=== PATIENT | female | born 1955 | race Caucasian/White ===

== ENCOUNTER 2023-08-25 22:41 | Inpatient (IN) | payer MEDICARE, OTHER, SELFPAY ==
[2023-08-25 19:07] VITALS: BP 168/107
--- NOTE | 2023-08-25 19:37 | ED.GENMED ---
History of Present Illness
General
Chief Complaint: Flank Pain
Source: patient
Time Seen by Provider: 08/25/23 19:21
Travel History
Have you had any contact with someone who has COVID-19?: No
Do you have any symptoms of coronavirus? Fever > 100 degrees, chills, cough, shortness of breath, sore throat, loss of taste or smell, muscle aches, or headache?: No
History of Present Illness
History of Present Illness:
68-year-old female presenting the emergency department for evaluation of left flank pain that started a couple of days ago has mild left lower back pain but today states the pain got significantly worse and radiating towards the left lower abdomen.
This was accompanied with nausea and later in the afternoon started with some mild hematuria. Due to the continued nature of symptoms patient decided to come to the ER today. Denies any fevers, chills, rigors. No history of kidney stones or
urinary tract infections in the past. Patient does have a history of Crohn's disease and gets Remicade infusion but this is different than this type of pain/flareup. No other symptoms and did not take anything for her symptoms prior to arrival.
Past History
Past History
ED Past Medical History: Hypothyroidism, Psychiatric and Other (Crohn's disease)
ED Past Surgical History: Orthopedic and Other
Social History
Tobacco: Non-smoker
Alcohol: None
Drug: None
Personal:
Living: with family
Review of Systems
Review of Systems
All Other Systems: ROS reviewed and negative except as documented in HPI and ROS
Phy Exam
Physical Exam
Physical Exam:
GENERAL: Alert , appears uncomfortable
EYE: clear conjunctiva b/l
HEAD: NCAT
ENT: o/p clr, mmm.
CARDIAC: Regular rate and rhythm .
LUNGS: Clear breath sounds bilaterally, no acute respiratory distress, no wheezes/rales/rhonchi
ABDOMEN: Soft, without focal tenderness, no r/g, moderate left flank ttp
NEUROLOGICAL: Alert and oriented
SKIN: Warm and dry, skin intact.
MUSCULOSKELETAL: No edema, well perfused.
PSYCH: Normal and appropriate interaction.
Scores
Heart Failure Risk
Heart Failure Risk Score: Not Applicable
Heart Score for Chest Pain Patients
STEMI patient?: Not applicable
Withdrawal Assessment of Alcohol
Withdrawal Assessment Completed?: Not applicable
Course
Orders/Labs/Results
Orders:
Orders
08/25/23 19:22
Complete Blood Count/With Diff Urgent
Comprehensive Metabolic Panel Urgent
Urinalysis Reflex To Culture Urgent
Date Specimen was Collected: 08/25/23
Time Specimen was Collected: 19:12
Urine Microscopic Reflex Cult Urgent
Urine Culture Urgent
TAMMY Source: U
Specimen Description:
Date Specimen was Collected: 08/25/23
Time Specimen was Collected: 19:12
08/25/23 19:28
0.9% Sodium Chloride 1000 ml [Nss] 1,000 ml IV BOLUS
Ketorolac [Toradol] 30 mg IV NOW STA
Ondansetron Injectable [Zofran] 4 mg IV NOW STA
08/25/23 19:29
CT Abd/pel Without Iv Or Oral Urgent
Comment:
Reason For Exam: left flank pain, hematuria
08/25/23 19:54
CefTRIAXone [Rocephin] 1,000 mg IV NOW STA
08/25/23 20:12
Ondansetron Injectable [Zofran] 4 mg IV NOW STA
08/25/23 20:13
Sterile Water [Sterile Water For Injection] 10 ml .ROUTE .[facility]
Abnormal Lab Results
08/25/23
19:22
WBC 12.5 H 10^3/uL
(4.8-10.8)
Absolute Neuts (auto) 10.3 H 10^3/uL
(1.4-6.5)
Neutrophils % 82.3 H %
(42.2-75.2)
Lymphocytes % 13.6 L %
(20.5-51.1)
Glucose 146 H mg/dl
(70-99)
Urine Ketones 2+ A
(Negative)
Ur Occult Blood Reflex 4+ A
(Negative)
Urine Nitrite (Reflex) Positive A
(Negative)
Urine Bilirubin 1+ A
(Negative)
Leukocyte Esterase Rfl Trace A
(Negative)
Urine RBC >100 A /HPF
(0-2)
Urine Albumin (Reflex) 1+ A
(Neg - Trace)
08/25/23 19:22
08/25/23 19:22
Vital Signs
Initial and Last Documented VS:
Initial Vital Signs
Temp Pulse Resp BP Pulse Ox
98.3 F 84 18 168/107 95
08/25/23 19:07 08/25/23 19:07 08/25/23 19:07 08/25/23 19:07 08/25/23 19:07
Last Documented Vital Signs
Temp Pulse Resp BP Pulse Ox
98.3 F 72 18 130/68 93
08/25/23 19:07 08/25/23 22:03 08/25/23 22:03 08/25/23 22:03 08/25/23 22:03
MDM/Problems Addressed
Differential Diagnosis Includes:
Renal/ureteral colic, cystitis, pyelonephritis
MDM/Problems Addressed:
68-year-old female presenting emergency department for evaluation of some mild left lower back pain a couple of days ago but today started with more severe pain radiating to the left lower abdomen and today companied with hematuria. Patient does
appear pretty uncomfortable on exam. Labs and urine were initiated in triage. I suspect renal/ureteral to be the most likely diagnosis. Toradol, Zofran and fluids ordered. CT of the abdomen pelvis ordered. Reassessment following.
*Radiology
Radiology exam reviewed: radiology read reviewed
*Pulse Oximetry
Patient hypoxic: no
*Critical Care Note
Total Time (30-74mins, 75-104mins- exclusive of procedures): Not Applicable
Data Reviewed
Review of Other/Old Records Reveals: Radiology Studies
Patient Management
Discussion with other providers: Hospitalist and [employer]
Escalation/DeEscalation of care consider admission/obs:
Patients CT shows the following:
IMPRESSION:
3 mm obstructing calculus in the proximal to mid left ureter, associated with mild left hydronephrosis. Correlation with UA to assess for superimposed infection is recommended.
Bilateral renal calculi also seen.
Additional findings: Left sided focal renal cortical scarring. Moderate hiatal hernia. Vascular calcifications including coronary artery calcifications. Aortic annular mitral annular calcifications. DJD. Right hip arthroplasty. Colonic
diverticulosis.
Patient pain is improved although still with mild nausea. WBC 12.5 with leftward shift. Due to infected urine with kidney stone will admit for IV abx. Urology instrument person notified. Hospitalist accepts for continued evaluation and treatment
ED Attending Note
-
Portions of this chart may have been created with voice recognition software.� Occasional wrong word or��sound alike� substitutions may have occurred due to the inherent limitations of voice recognition software.
Discharge Plan
Departure
Patient Disposition: Admit
Date of Disposition: 08/25/23
Time of Disposition: 22:09
Presentation/result/management discussed w/ accepting MD/DO: Hospitalist
Discharge Problem:
Acute UTI, Ureterolithiasis
Prescriptions:
No Action
metformin 500 mg Tablet
500 mg PO DAILY
levothyroxine 88 mcg Tablet
88 mcg PO DAILY
vitamin B complex Capsule
1 cap PO DAILY
escitalopram oxalate [Lexapro] 10 mg Tablet
10 mg PO HS
rosuvastatin 5 mg Tablet
2.5 mg PO DAILY
Remicade
1 dose IV .Q7 WEEKS
Vitamin D3
1 tab PO DAILY
biotin
1 tab PO DAILY
vitamin A
1 tab PO DAILY
cetirizine [Zyrtec] 10 mg Tablet
10 mg PO DAILY PRN (Reason: allergies)
Referrals:
Nisha Baker MD [Family Provider] -
Interventions
Interventions:
*Risk Screen - Suicide Last Done: 08/25/23 19:09
*General Assessment Last Done: 08/25/23 19:09
*Neglect/Abuse Screening Last Done: 08/25/23 19:09
JU-Fyutlf-Atlptimfrq Assessment Last Done: 08/25/23 20:35
ED-Female Genitourinary Assessment Last Done: 08/25/23 20:35
Discharge Date and Time
Print Language: GERMAN
[2023-08-25 19:41] LABS: % Basophils 0.2 % (0-2); % Eosinophils 0.2 % (0-6); % Immature Granulocytes 0.2 % (0-0.5); % Lymphocytes 13.6 % (20.5-51.1); % Monocytes 3.5 % (1.7-9.3); % Neutrophils 82.3 % (42.2-75.2); Absolute Lymphocytes 1.7 10^3/uL (1.2-3.4); Absolute Monocytes 0.4 10^3/uL (0.1-0.6); Absolute Neutrophils 10.3 10^3/uL (1.4-6.5); Hematocrit 44.6 % (37.0-47.0); Hemoglobin 14.9 g/dL (12.0-16.0); Mean Corp Hgb Conc. 33.4 g/dL (33.0-37.0); Mean Corpuscular Hgb 30.4 pg (27.0-31.0); Mean Platelet Volume 10.1 fL (7.4-10.4); Nucleated Red Blood Cells % 0 %; Platelet Count 201 10^3/uL (130-400); Red Cell Dist. Width 13.2 % (11.5-14.5); White Blood Cell Count 12.5 10^3/uL (4.8-10.8)
[2023-08-25] MEDS: NSS 1000 IV (19:41)
[2023-08-25] MEDS: ZOFRAN 4 MG IV ×2 (19:42→20:14)
[2023-08-25] MEDS: TORADOL 30 MG IV (19:42)
[2023-08-25 19:44] LABS: Urine Albumin 1+ (Neg - Trace); Urine Bilirubin 1+ (Negative); Urine Character Very Cloudy (Clear); Urine Color Amber; Urine Glucose Negative (Negative); Urine Ketone 2+ (Negative); Urine Leukocyte Trace (Negative); Urine Nitrite Positive (Negative); Urine Occult Blood 4+ (Negative); Urine Urobilinogen 1+ (Neg - 1+)
[2023-08-25 19:53] LABS: Urine Amorphous Seen; Urine Red Blood Cell >100 /HPF (0-2); Urine Squamous Cell 16-20 /LPF (Few)
[2023-08-25 19:55] LABS: ALT (SGPT) 17 U/L (0-35); AST (SGOT) 28 U/L (14-36); Albumin 4.9 g/dl (3.5-5.0); Alkaline Phosphatase 74 U/L (38-126); Blood Urea Nitrogen 15 mg/dl (7-17); Calcium 10.1 mg/dl (8.4-10.2); Carbon Dioxide 25 mmol/L (22-30); Chloride 101 mmol/L (98-107); Glucose 146 mg/dl (70-99); Potassium 4.2 mmol/L (3.5-5.1); Sodium 139 mmol/L (135-145); Total Bilirubin 0.5 mg/dl (0.2-1.3); Total Protein 8.2 g/dl (6.3-8.2); eGFR > 60.00
[2023-08-25] MEDS: ROCEPHIN 1000 MG IV (20:14)
[2023-08-25 20:33] VITALS: BP 159/77
[2023-08-25 22:03] VITALS: BP 130/68
--- NOTE | 2023-08-25 22:24 | HPS.HSE ---
Family Physician
-
Family Physician: Nisha Baker
Chief Complaint
-
Lt flank pain
History of Present Illness
68F HX Crohn dz, Hypothyroid seen at ER for evaluation of left flank pain
Current Lt flank pain
- acute onset a couple of days ago which progressive worse
- mild left lower back pain which radiating towards the left lower abdomen
- associated with retching, nausea and hematuria
- Denies fevers, chills, rigors
- No history of kidney stones or UTI
Medical History
Past Medical History
Past Medical History: Reports Hypercholesterolemia and Other
Additional Past Medical History:
Hypothyroidism, Depression and Other (Crohn's disease)
Past Surgical History: Reports Orthopedic
Social History
Tobacco: Non-smoker
Alcohol: None
Drug: None
Personal:
Family History
Family History: Not pertinent
Allergies / Home Medications
Allergies reflects when Allergies were last updated in [facility].
Home Medications with original date entered in [facility]
Allergy/Medication List:
Allergies
Allergy/AdvReac Type Severity Reaction Status Date / Time
No Known Allergies Allergy Verified 11/09/21 12:20
Home Medications
Remicade 1 dose IV .Q7 WEEKS 11/08/21
Vitamin D3 1 tab PO DAILY 11/08/21
biotin 1 tab PO DAILY 11/08/21
escitalopram oxalate 10 mg tablet (Lexapro) 10 mg PO HS 11/08/21
levothyroxine 88 mcg tablet 88 mcg PO DAILY 11/08/21
metformin 500 mg tablet 500 mg PO DAILY 11/08/21
rosuvastatin 5 mg tablet 2.5 mg PO DAILY 11/08/21
vitamin A 1 tab PO DAILY 11/08/21
vitamin B complex 1 cap PO DAILY 11/08/21
cetirizine 10 mg tablet (Zyrtec) 10 mg PO DAILY PRN allergies 11/09/21
Review of Systems
-
Constitutional: Reports No Symptoms
EENT: Reports No Symptoms
Respiratory: Reports No Symptoms
Cardiac: Reports No Symptoms
Abdomen/GI: Reports Nausea
: Reports See HPI and Flank Pain (Lt )
Musculoskeletal: Reports No Symptoms
Skin: Reports No Symptoms
Neurological: Reports No Symptoms
Endocrine: Reports No Symptoms
Hematologic/Lymphatic: Reports No Symptoms
Psych: Reports No Symptoms
Physical Exam
Vital Signs
Vital Signs
Temp Pulse Resp BP Pulse Ox
98.3 F 72 18 130/68 93
08/25/23 19:07 08/25/23 22:03 08/25/23 22:03 08/25/23 22:03 08/25/23 22:03
Physical Exam
General: Other (unconfortable looking , Not toxic ); No Appears Chronically Ill
HEENT: NormoCephalic, Anicteric and Moist mucous membranes
Respiratory: Clear; No Wheezes, Rales or Rhonchi
Cardiac: S1/S2 and Regular Rhythm
Breast: Deferred by me
GI: Soft, Non Tender and Non Distended
Rectal: Deferred by Provider
Genito-urinary: Other (moderate left flank tenderness )
Musculoskeletal: No Edema
Skin: Warm
Neuro: AO x 3
Psych: Calm
Laboratory Results
-
08/25/23 19:22
08/25/23 19:22
Laboratory Results
Total Bilirubin 0.5 mg/dl (0.2-1.3) 08/25/23 19:22
AST 28 U/L (14-36) 08/25/23 19:22
ALT 17 U/L (0-35) 08/25/23 19:22
Alkaline Phosphatase 74 U/L (38-126) 08/25/23 19:22
Data Reviewed
-
CT Scan: Report Reviewed by me
Lab Data: Labs Reviewed by me
Impression/Plan
-
Reviewed VS: Afebrile BP 168/107 ---> 130/68 HR 72 RR18 POx 93 - 97
Data
WCC 12.5
Unremarkable CMP
BG 146
UA: POS Nitrites. RBC >100 WCC unable to count due to obscured by RBCx
CT AP: 3mm obstructing calculus in the prox to mid Lt ureter, mild Lt HN . B/l renal calculi
NO PRIOR hospitalist admission:
ASSESSMENT & PLAN
Pending Rx reconciliation
Acute Lt uretero colic pain : intermittent , waxing and waning
POX 3mm obstructing calculus in the prox to mid Lt ureter, mild Lt HN
Noted B/l renal calculi
Associated hematuria with POS Nitrite
Afebrile . WBC 12.5
No prior HX renal calculi
- at risk for infected stone
- cont empiric IV CFTZ
- IV NS
- Narcotic analgesia PRN
- clear diet
- Uro consulted
DMT2
- held Metformin
- add ISS low
HLD
- on Rosuvastatin
Hypothyroidism on LT4
Remote HX Thyroid CA s/p total thyroidectomy
Crohn's disease on Remicade [id number]
Depression and Anxiety on Escitalopram
DVT Px: SCD
Code: Full
IP MS
[2023-08-25 23:22] VITALS: BP 137/79; BMI 32.5
--- NOTE | 2023-08-26 00:11 | PTCARENOTE ---
Pt. admitted through E.D., AAO x 3, vs stable, call cuello within reach.
[2023-08-26] MEDS: NSS 1000 IV ×3 (00:14→21:13)
[2023-08-26] MEDS: FLUSH (NSS) 1 FLUSH IV (00:16)
[2023-08-26] MEDS: DILAUDID 0.5 MG IV ×2 (00:21→22:57)
[2023-08-26] MEDS: SYNTHROID 88 MCG PO (06:06)
[2023-08-26 07:13] VITALS: BP 131/66
[2023-08-26 07:51] LABS: Glucose - Point of Care 95 mg/dl (70-99)
[2023-08-26 09:12] LABS: % Basophils 0.3 % (0-2); % Eosinophils 0.7 % (0-6); % Immature Granulocytes 0.3 % (0-0.5); % Lymphocytes 38.2 % (20.5-51.1); % Monocytes 9.1 % (1.7-9.3); % Neutrophils 51.4 % (42.2-75.2); Absolute Eosinophils 0.1 10^3/uL (0-0.7); Absolute Lymphocytes 2.7 10^3/uL (1.2-3.4); Absolute Monocytes 0.7 10^3/uL (0.1-0.6); Absolute Neutrophils 3.7 10^3/uL (1.4-6.5); Hemoglobin 12.2 g/dL (12.0-16.0); Mean Corpuscular Volume 91.1 fL (81.0-99.0); Nucleated Red Blood Cells % 0 %; Platelet Count 171 10^3/uL (130-400); Red Blood Cell Count 4.06 10^6/uL (4.20-5.40); Red Cell Dist. Width 13.4 % (11.5-14.5); White Blood Cell Count 7.1 10^3/uL (4.8-10.8)
[2023-08-26] MEDS: CRESTOR 2.5 MG PO (09:12)
[2023-08-26 09:29] LABS: Calcium 8.8 mg/dl (8.4-10.2); Carbon Dioxide 22 mmol/L (22-30); Estimated Creatinine Clearance 90 ml/min; eGFR > 60.00
[2023-08-26 09:30] LABS: Blood Urea Nitrogen 16 mg/dl (7-17); Chloride 106 mmol/L (98-107); Glucose 94 mg/dl (70-99); Sodium 137 mmol/L (135-145)
[2023-08-26 09:54] LABS: Glycohemoglobin (HgbA1c) 6.4 % (4.0-5.6)
--- NOTE | 2023-08-26 09:58 | W.PN.URO.CBU ---
Today's Communication / Plan
-
Cleared for discharge home for outpatient trial of stone passage
Would advise 5 days coverage with cefdinir given history of DM and use of Remicade
Assessment / Plan
-
Partially obstructing 2 mm left proximal ureteral stone
Left renal colic and leukocytosis resolved
No fever/chills
Diagnosis
-
Date of Service: August 26, 2023
-
Patient Diagnosis:
Left renal colic
Nausea/vomiting
Leukocytosis
Partially obstructing 2mm left proximal ureteral calculus
Subjective
-
Much improved
Little to no left CVAT
No nausea
No dysuria
Objective
-
Vital Signs
Temp Pulse Resp BP Pulse Ox
98.0 F 68 16 131/66 98
08/26/23 07:13 08/26/23 07:13 08/26/23 07:13 08/26/23 07:13 08/26/23 07:13
Intake and Output
08/25/23 08/26/23 08/27/23
06:59 06:59 06:59
Intake Total 840 / 840
Balance 840 / 840
Intake:
Oral fluids 240 / 240
IV fluids (Total) 600 / 600
Other:
Number of approximated MODERATE 2
amounts of urine
Laboratory Results
08/26/23 08:14
08/26/23 08:14
Review of Systems
-
Constitutional: No Symptoms
Respiratory: No Symptoms
Cardiac: No Symptoms
Abdomen/GI: No Symptoms
: No Symptoms
Neurological: No Symptoms
Physical Exam
-
General - well nourished, no acute distress
Abdomen - soft, non-tender, no CVAT
Counseling
-
Discussed with Hospitalist
--- NOTE | 2023-08-26 10:12 | W.PN.URO.CBU ---
Today's Communication / Plan
-
Discussed with Hospitalist
Assessment / Plan
-
Partially obstructing 2 mm left proximal ureteral stone
Left renal colic and leukocytosis resolved
No fever/chills
Diagnosis
-
Date of Service: August 26, 2023
-
Patient Diagnosis:
Post Op Day:
Patient Diagnosis:
Left renal colic
Nausea/vomiting
Leukocytosis
Partially obstructing 2mm left proximal ureteral calculus
Objective
-
Vital Signs
Temp Pulse Resp BP Pulse Ox
98.0 F 68 16 131/66 98
08/26/23 07:13 08/26/23 07:13 08/26/23 07:13 08/26/23 07:13 08/26/23 07:13
Intake and Output
08/25/23 08/26/23 08/27/23
06:59 06:59 06:59
Intake Total 840 / 840
Balance 840 / 840
Intake:
Oral fluids 240 / 240
IV fluids (Total) 600 / 600
Other:
Number of approximated MODERATE 2
amounts of urine
Laboratory Results
08/26/23 08:14
08/26/23 08:14
Physical Exam
-
General - well developed, well nourished, no acute distress
Chest - clear bilaterally
Abdomen - soft, non-tender, positive bowel sounds, no CVAT, no incisional pain or distention
Genitalia - normal
Rectal - normal
Skin - warm & dry with no rash
Neuro - AOx3, no motor deficits
Extremities - no clubbing, no cyanosis, no edema
Incision - clean, dry
Dressing - clean, dry, intact
--- NOTE | 2023-08-26 10:37 | W.PN.HOSP.TC ---
Today's Communication/Plan
-
see bold
Assessment / Plan
Assessment / Plan
Gen: NAD, AAOx3.
Eyes: EOMI, PERRLA, no scleral icterus.
Neck: supple.
CV: RRR, +S1/S2, no m/r/g.
Resp: CTAB, no rales, wheezes, or rhonchi.
Abd: +BS, soft, NT, ND
Skin: No rashes.
Neuro: CN 2-12 intact, non-focal.
Psych: Normal mood and affect.
3mm obstructing left ureterolithiasis:
-Official read of CT scan of the abdomen pelvis is pending
-Case discussed with Dr. Oliveira. No surgical intervention indicated at this time. Stone will likely pass on it's own.
-possible UTI due to 3mm obstructing left ureterolithiasis, cont Rocephin, follow UCx
-leukocytosis now resolved
-cont IVFs
Other problems:
DM2: Restart Metformin. SSI/accuchecks
Obesity due to excess calories
HLD: cont statin
Hypothyroidism: cont Levoxyl (h/o Thyroid CA s/p total thyroidectomy)
Crohn's disease on Remicade [id number]
Depression/Anxiety: cont Escitalopram
FULL/Lovenox
Anticipated Discharge: Within 24 hours
Subjective/Interval History
-
Date of Service: August 26, 2023
Objective Data
-
Labs:
Laboratory Results
08/26/23
08:14
WBC 7.1
Hgb 12.2
Hct 37.0
Plt Count 171
Sodium 137
Potassium 4.0
Chloride 106
Carbon Dioxide 22
BUN 16
Creatinine 0.6
Glucose 94
Calcium 8.8
Vital Signs:
Vital Signs
Temp Pulse Resp BP Pulse Ox
98.0 F 68 16 131/66 98
08/26/23 07:13 08/26/23 07:13 08/26/23 07:13 08/26/23 07:13 08/26/23 07:13
I&O
08/25/23 08/26/23 08/27/23
06:59 06:59 06:59
Intake Total 840 / 840
Balance 840 / 840
--- NOTE | 2023-08-26 11:40 | CM ---
Patient seen bedside.
IA completed.
Patient lives with daughter in [place] style home.
Patient independent prior to admission without assistive devices.
patient drives.
Patient is retired.
No VN.
PCP: Dr Baker
Pharmacy: [facility]
Plan: home no needs.
[2023-08-26 11:43] LABS: Glucose - Point of Care 115 mg/dl (70-99)
[2023-08-26] MEDS: GLUCOPHAGE 500 MG PO (12:03)
[2023-08-26 15:06] VITALS: BP 109/57
[2023-08-26 16:51] LABS: Glucose - Point of Care 113 mg/dl (70-99)
[2023-08-26] MEDS: TORADOL 10 MG IV (21:13)
[2023-08-26] MEDS: ROCEPHIN 1000 MG IV (21:13)
[2023-08-26 21:49] LABS: Glucose - Point of Care 114 mg/dl (70-99)
[2023-08-26 23:58] VITALS: BP 139/75
[2023-08-27] MEDS: SYNTHROID 88 MCG PO (05:51)
[2023-08-27] MEDS: NSS 1000 IV (05:51)
[2023-08-27 07:00] VITALS: BP 144/75
[2023-08-27] MEDS: TORADOL 10 MG IV (07:40)
[2023-08-27 07:41] LABS: Glucose - Point of Care 118 mg/dl (70-99)
[2023-08-27] MEDS: CRESTOR 2.5 MG PO (07:42)
[2023-08-27] MEDS: MIRALAX 17 GRAMS PO (07:42)
[2023-08-27] MEDS: GLUCOPHAGE 500 MG PO (07:43)
--- NOTE | 2023-08-27 09:11 | W.PN.URO.CBU ---
Today's Communication / Plan
-
Cleared for discharge home from [facility]
Will follow up as outpatient to confirm stone passage
Assessment / Plan
-
Partially obstructing 2 mm left proximal ureteral stone
Left renal colic and leukocytosis resolved
No fever/chills
Diagnosis
-
Date of Service: August 27, 2023
-
Patient Diagnosis:
Left renal colic: resolved
Nausea/vomiting: resolved
Leukocytosis: resolved
Partially obstructing 2mm left proximal ureteral calculus
Subjective
-
c/o low back pain
No left renal colic
No dysuria or gross hematuria
Objective
-
Vital Signs
Temp Pulse Resp BP Pulse Ox
98.1 F 69 14 144/75 95
08/27/23 07:00 08/27/23 07:00 08/27/23 07:00 08/27/23 07:00 08/27/23 07:00
Intake and Output
08/26/23 08/27/23 08/28/23
06:59 06:59 06:59
Intake Total 840 / 840 3020 / 3020
Balance 840 / 840 3020 / 3020
Intake:
Oral fluids 240 / 240 720 / 720
IV fluids (Total) 600 / 600 2300 / 2300
Other:
Number of approximated MODERATE 2 3
amounts of urine
Laboratory Results
08/26/23 08:14
08/26/23 08:14
Review of Systems
-
Constitutional: No Symptoms
Respiratory: No Symptoms
: No Symptoms
Neurological: No Symptoms
Physical Exam
-
General - well developed, well nourished, no acute distress
Abdomen - soft, non-tender, no CVAT
Skin - warm & dry with no rash
--- NOTE | 2023-08-27 10:32 | W.PN.HOSP.TC ---
Today's Communication/Plan
-
d/c
Assessment / Plan
Assessment / Plan
Gen: NAD, AAOx3.
Eyes: EOMI, PERRLA, no scleral icterus.
Neck: supple.
CV: Remains RRR, +S1/S2, no m/r/g.
Resp: Remains CTAB, no rales, wheezes, or rhonchi.
Abd: Remains +BS, soft, NT, ND
Skin: No rashes.
Neuro: CN 2-12 intact, non-focal.
Psych: Normal mood and affect.
3mm obstructing left ureterolithiasis:
-Official read of CT scan of the abdomen pelvis is pending
-Case discussed with Dr. Oliveira. No surgical intervention indicated at this time. Stone will likely pass on it's own.
-Pt was on Rocephin. UCx with no significant growth. Urinary tract infection has been ruled out. Stop Rocephin.
-leukocytosis now resolved
-s/p IVFs
-discussed plan with Dr. Oliveira today
Other problems:
DM2: cont Metformin/SSI/accuchecks
Obesity due to excess calories
HLD: cont statin
Hypothyroidism: cont Levoxyl (h/o Thyroid CA s/p total thyroidectomy)
Crohn's disease on Remicade [id number]
Depression/Anxiety: cont Escitalopram
FULL/Lovenox
Total time spent on d/c = 31 min. This included today's physical exam, progress note, review of laboratory and diagnostic data, preparation of discharge documents and prescriptions, and discussions about the pt's hospital course and discharge plan
with the patient and other director global medical affairs involved in the patient's care.
Anticipated Discharge: Today
Subjective/Interval History
-
Date of Service: August 27, 2023
No new complaints.
Objective Data
-
Vital Signs:
Vital Signs
Temp Pulse Resp BP Pulse Ox
98.1 F 69 14 144/75 95
08/27/23 07:00 08/27/23 07:00 08/27/23 07:00 08/27/23 07:00 08/27/23 07:00
I&O
08/26/23 08/27/23 08/28/23
06:59 06:59 06:59
Intake Total 840 / 840 3020 / 3020
Balance 840 / 840 3020 / 3020
[2023-08-27 11:29] LABS: Glucose - Point of Care 102 mg/dl (70-99)
[2023-08-27 12:04] VITALS: BP 148/82
--- NOTE | 2023-08-27 14:14 | W.DCSUMMARY ---
Discharge Summary
Discharge Data
Date of Admission: 08/25/23
Date of Discharge: 08/27/23
-
Pending Results: No
Hospital Course
Primary diagnoses:
Mild acute left hydronephrosis secondary to a 2mm obstructing calculus in the left mid ureter
Secondary diagnoses:
Type 2 diabetes mellitus
Obesity due to excess calories
Hyperlipidemia
Hypothyroidism (h/o Thyroid cancer s/p total thyroidectomy)
Crohn's disease
Depression
Anxiety
Consultants:
Urology
Imaging:
CT A/P:
1. MILD ACUTE LEFT HYDRONEPHROSIS secondary to a 2 mm obstructing calculus in the left mid ureter.
2. Bilateral nonobstructing intrarenal calculi.
3. Mild chronic scarring in the upper pole of the left kidney.
4. Small hiatal hernia.
5. Moderate calcific atherosclerotic plaque in the abdominal aorta.
6. Moderate diverticulosis in the descending and sigmoid colon.
7. Severe multilevel discogenic degenerative disease and facet joint arthrosis in the lumbar spine.
Hospital course: 68-year-old female presented with chief complaint of left flank pain as outlined in the H&P done on admission. Imaging above and notable for mild acute left hydronephrosis secondary to a 2 mm obstructing calculus in the left mid
ureter. Patient was treated with IV fluids. Urology saw the patient consultation. No surgical intervention was indicated. Dr. Oliveira indicated that the stone will likely pass on its own. The patient was placed on empiric Rocephin. Her urine
culture was no growth. Urinary tract infection was ruled out and Rocephin was stopped. The patient had a leukocytosis that was likely reactive that resolved. The patient was discharged in medically stable condition.
Discharge Plan
-
Patient Disposition: Home (Routine Discharge)
Discharge Diagnosis/Procedures: 3mm obstructing left ureterolithiasis
Condition: Good
Diet: Diabetic, Carb Controlled
Activity: No restrictions
Driving Restrictions: As prior to admission
Bathing Restrictions: None
Referrals:
Nisha Baker MD [Family Provider] - in less than 1 week
Prescriptions:
Continued
metformin 500 mg Tablet
500 mg PO DAILY
levothyroxine 88 mcg Tablet
88 mcg PO DAILY
escitalopram oxalate [Lexapro] 10 mg Tablet
10 mg PO HS
Patient Comments:
pt. does not take anymore
rosuvastatin 5 mg Tablet
2.5 mg PO DAILY
Remicade
1 dose IV .Q7 WEEKS
cetirizine [Zyrtec] 10 mg Tablet
10 mg PO DAILY PRN (Reason: allergies)
Discharge Orders:
Discharge Patient (As Directed); Ordered 08/27/23
Ordered By: Paresh Martínez
Discharge Date and Time
Discharge Date/Time: 08/27/23 13:54
Print Language: NORWEGIAN
== END 2023-08-27 13:54 | disposition home or self-care (01) | DRG 694 ==
LOC: 4 WEST ACU 22:41
PROVIDERS: ADMITTING PHYSICIAN Internal Medicine; ATTENDING PHYSICIAN Internal Medicine; CONSULT PHYSICIAN Specialist; EMERGENCY PHYSICIAN Emergency Medicine; FAMILY PHYSICIAN Internal Medicine
DX: N13.2 Hydronephrosis with renal and ureteral calculous obstruction (principal); K50.90 Crohn's disease, unspecified, without complications; E11.9 Type 2 diabetes mellitus without complications; E66.09 Other obesity due to excess calories; E78.00 Pure hypercholesterolemia, unspecified; E89.0 Postprocedural hypothyroidism; Z79.620 Long term (current) use of immunosuppressive biologic; F32.A Depression, unspecified; F41.9 Anxiety disorder, unspecified; Z68.32 Body mass index [BMI] 32.0-32.9, adult
CPT/HCPCS: 74176; 80048; 80053; 81003; 81015; 82962; 83036; 85025; 87086; 96361; 96374; 96375; 96376; 99285

== ENCOUNTER 2023-10-08 15:57 | Inpatient (IN) | payer MEDICARE, OTHER, SELFPAY ==
[2023-10-08] VITALS (8 sets, daily range): BP systolic 113–148; BP diastolic 57–94; BMI 34.5
[2023-10-08 12:45] LABS: % Basophils 0.3 % (0-2); % Eosinophils 0.3 % (0-6); % Immature Granulocytes 0.3 % (0-0.5); % Lymphocytes 26.5 % (20.5-51.1); % Monocytes 7.2 % (1.7-9.3); % Neutrophils 65.4 % (42.2-75.2); Absolute Lymphocytes 1.7 10^3/uL (1.2-3.4); Absolute Monocytes 0.5 10^3/uL (0.1-0.6); Absolute Neutrophils 4.3 10^3/uL (1.4-6.5); Hematocrit 39.9 % (37.0-47.0); Hemoglobin 13.7 g/dL (12.0-16.0); Mean Corp Hgb Conc. 34.3 g/dL (33.0-37.0); Mean Corpuscular Hgb 31.3 pg (27.0-31.0); Mean Corpuscular Volume 91.1 fL (81.0-99.0); Mean Platelet Volume 9.8 fL (7.4-10.4); Nucleated Red Blood Cells % 0 %; Platelet Count 177 10^3/uL (130-400); Red Blood Cell Count 4.38 10^6/uL (4.20-5.40); White Blood Cell Count 6.5 10^3/uL (4.8-10.8)
[2023-10-08 12:59] LABS: ALT (SGPT) 15 U/L (0-35); AST (SGOT) 23 U/L (14-36); Albumin 4.2 g/dl (3.5-5.0); Alkaline Phosphatase 64 U/L (38-126); Blood Urea Nitrogen 15 mg/dl (7-17); Calcium 9.5 mg/dl (8.4-10.2); Carbon Dioxide 25 mmol/L (22-30); Chloride 105 mmol/L (98-107); Estimated Creatinine Clearance 96 ml/min; Glucose 120 mg/dl (70-99); Potassium 4.2 mmol/L (3.5-5.1); Sodium 140 mmol/L (135-145); Total Bilirubin 0.4 mg/dl (0.2-1.3); eGFR > 60.00
--- NOTE | 2023-10-08 14:51 | ED.GENMED ---
History of Present Illness
General
Chief Complaint: Weakness
Source: patient and family
Exam Limitations: none
Time Seen by Provider: 10/08/23 11:58
Nursing documentation reviewed up to this point in time: agreed with
History of Present Illness
History of Present Illness:
68-year-old female presenting to the emergency department today with concerns of right arm and right leg weakness over the past 4 days ongoing over the past 4 days. She additionally had an episode of blurred vision that initially started the
symptoms. Denies any specific pain denies any nausea vomiting. Chest pain shortness of breath.
Past History
Past History
ED Past Medical History: Hypothyroidism, Psychiatric and Other (Crohn's disease)
ED Past Surgical History: Orthopedic and Other
Social History
Tobacco: Non-smoker
Alcohol: None
Drug: None
Personal:
Living: with family
Review of Systems
Review of Systems
Allergies reviewed?: Yes
All Other Systems: ROS reviewed and negative except as documented in HPI and ROS
Phy Exam
Physical Exam
Physical Exam:
GENERAL: Alert , in no apparent distress
EYE: pupils equal and reactive
NECK: Supple, no significant adenopathy.
ENT: o/p clr, mmm.
CARDIAC: Regular rate and rhythm .
LUNGS: Clear breath sounds bilaterally, no acute respiratory distress, no wheezes/rales/rhonchi
ABDOMEN: Soft, without focal tenderness, no r/g, no cvat
NEUROLOGICAL: Alert and oriented, patient has vague slight weakness diffusely to the right lower extremity and right upper extremity pronator drift on the right side compared to the left. Otherwise normal sensation bilaterally normal finger-nose
and [id number]. Normal HEENT examination.
SKIN: Warm and dry, skin intact.
MUSCULOSKELETAL: No edema, well perfused.
PSYCH: Normal and appropriate interaction.
Course
Orders/Labs/Results
Orders:
Orders
10/08/23 12:23
Electrocardiogram (*1) Stat
Reason for Study: Other
Other Reason for Exam: neuro symptoms
CT Head & Neck Angio W/wo IV Urgent
Comment:
Reason For Exam: nck pain right sided def, neckmanipulation
Cardiac Monitoring- Treatment ONCE
EKG- Treatment ONCE
10/08/23 12:33
Complete Blood Count/With Diff Urgent
Comprehensive Metabolic Panel Urgent
10/08/23 14:58
Aspirin 325 mg PO NOW STA
10/08/23 14:59
Clopidogrel Bisulfate [Plavix] 75 mg PO NOW STA
Abnormal Lab Results
10/08/23
12:33
MCH 31.3 H pg
(27.0-31.0)
Glucose 120 H mg/dl
(70-99)
10/08/23 12:33
10/08/23 12:33
Vital Signs
Initial and Last Documented VS:
Initial Vital Signs
Temp Pulse Resp BP Pulse Ox
98.2 F 76 18 147/94 95
10/08/23 11:19 10/08/23 11:19 10/08/23 11:19 10/08/23 11:19 10/08/23 11:19
Last Documented Vital Signs
Temp Pulse Resp BP Pulse Ox
98.2 F 60 18 136/74 95
10/08/23 11:19 10/08/23 15:15 10/08/23 15:15 10/08/23 15:00 10/08/23 15:15
MDM/Problems Addressed
MDM/Problems Addressed:
68-year-old female presented to the emergency department today with concerns of right-sided weakness difficulty with ambulation due to the weakness veering to the right side when walking. Ongoing for 4 days started with some blurred vision. Has
had some intermittent neck pain has been seeing a chiropractor as well. Concerning the CT angiogram was performed no emergent findings seen on CT. No signs of bleeding. Patient was given aspirin and Plavix Case was discussed with neurology who
would like to get an MRI and admit the patient. Stable throughout ER stay.
*Critical Care Note
Total Time (30-74mins, 75-104mins- exclusive of procedures): Not Applicable
ED Attending Note
-
Portions of this chart may have been created with voice recognition software.� Occasional wrong word or��sound alike� substitutions may have occurred due to the inherent limitations of voice recognition software.
Discharge Plan
Departure
Patient Disposition: Admit
Date of Disposition: 10/08/23
Time of Disposition: 15:20
Admit to: Telemetry
Admit to doctor: Sherman
Presentation/result/management discussed w/ accepting MD/DO: Hospitalist
Patient with high blood pressure during this ER visit?: No
Condition: Good
Covid-19: Not Applicable
Discharge Problem:
Right sided weakness
Prescriptions:
No Action
metformin 500 mg Tablet
500 mg PO DAILY
levothyroxine 88 mcg Tablet
88 mcg PO DAILY
escitalopram oxalate [Lexapro] 10 mg Tablet
10 mg PO HS
Patient Comments:
pt. does not take anymore
rosuvastatin 5 mg Tablet
2.5 mg PO DAILY
Remicade
1 dose IV .Q7 WEEKS
cetirizine [Zyrtec] 10 mg Tablet
10 mg PO DAILY PRN (Reason: allergies)
Referrals:
Nisha Baker MD [Family Provider] -
Interventions
Interventions:
*Risk Screen - Suicide Last Done: 10/08/23 11:19
*General Assessment Last Done: 10/08/23 11:19
*Neglect/Abuse Screening Last Done: 10/08/23 11:19
ED- Fall Risk Assessment Last Done: 10/08/23 11:37
*ED COVID-19 Vaccine History Last Done: 10/08/23 11:19
ED- Cardiac Assessment Last Done: 10/08/23 11:35
ED- Neurological Assessment Last Done: 10/08/23 14:26
ED- Pulmonary Assessment Last Done: 10/08/23 11:35
Discharge Date and Time
Print Language: DOMINICAN
[2023-10-08] MEDS: PLAVIX 75 MG PO (15:09)
[2023-10-08] MEDS: ASPIRIN 325 MG PO (15:09)
--- NOTE | 2023-10-08 15:23 | HPS.HSE ---
Family Physician
-
Family Physician: Nisha Baker
Chief Complaint
-
R arm and leg weakness
History of Present Illness
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 She also had blurred vision 4 days ago which has resolved.
Patient also complained of mild shortness of breath with exertion.
She denies to other symptoms such as fever/chills etc.
Medical History
Past Medical History
Past Medical History: Reports Hypercholesterolemia and Other
Additional Past Medical History:
Hypothyroidism, Depression, Crohn's disease
Past Surgical History: Reports Orthopedic and Other
Additional Past Surgical History:
Thyroid cancer s/p total thyroidectomy
Social History
Tobacco: Non-smoker
Alcohol: Occasional
Drug: None
Personal:
Family History
Family History: Not pertinent
Allergies / Home Medications
Allergies reflects when Allergies were last updated in [facility] [employer].
Home Medications with original date entered in [employer] [facility]
Allergy/Medication List:
Allergies
Allergy/AdvReac Type Severity Reaction Status Date / Time
No Known Allergies Allergy Verified 10/08/23 11:19
Home Medications
levothyroxine 88 mcg tablet 88 mcg PO DAILY Thyroid 11/08/21
metformin 500 mg tablet 500 mg PO DAILY Diabetes 11/08/21
cetirizine 10 mg tablet (Zyrtec) 10 mg PO DAILYPRN PRN allergies 11/09/21
bismuth subsalicylate 262 mg tablet (Pepto-Bismol) 524 mg PO DAILYPRN PRN stomach issues 10/08/23
ibuprofen 400 mg tablet 800 mg PO Q8HPRN PRN mild pain 10/08/23
infliximab 100 mg intravenous solution (Remicade) 100 mg IV Q7W 10/08/23
risedronate 150 mg tablet 150 mg PO QMONTH 10/08/23
rosuvastatin 10 mg tablet 5 mg PO DAILY 10/08/23
Review of Systems
-
Neurological: Reports See HPI and Weakness (R leg > R arm)
Physical Exam
Vital Signs
Vital Signs
Temp Pulse Resp BP Pulse Ox
36.8 C 60 18 136/74 95
10/08/23 11:19 10/08/23 15:15 10/08/23 15:15 10/08/23 15:00 10/08/23 15:15
Physical Exam
General: Well Developed, Well Nourished, No Apparent Distress, Comfortable and Conversant
HEENT: NormoCephalic, Moist mucous membranes and Atraumatic
Respiratory: Clear and Non Labored Respirations; No Accessory Resp Muscle Use
Cardiac: S1/S2 and Regular Rhythm; No Murmur or Rub
GI: Soft, Non Tender, Non Distended and Normal Bowel Sounds; No Organomegaly
Rectal: Deferred by Provider
Musculoskeletal: No Clubbing, No Cyanosis and No Edema
Skin: No Rash
Neuro: Awake, Alert, Oriented and Other (R leg weakness)
Psych: Calm and Intact Judgment/Insight
Laboratory Results
-
10/08/23 12:33
10/08/23 12:33
Laboratory Results
Total Bilirubin 0.4 mg/dl (0.2-1.3) 10/08/23 12:33
AST 23 U/L (14-36) 10/08/23 12:33
ALT 15 U/L (0-35) 10/08/23 12:33
Alkaline Phosphatase 64 U/L (38-126) 10/08/23 12:33
Data Reviewed
-
CT Scan: Report Reviewed by me
Lab Data: Labs Reviewed by me
Impression/Plan
-
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 She also had blurred vision 4 days ago which has resolved.
Patient also complained of mild shortness of breath with exertion.
She denies to other symptoms such as fever/chills etc.
A/P:
# R arm and leg weakness, possible TIA/stroke
CTH and CTA showed no acute intracranial abnormality.
Check MRI brain
Started ASA/Plavix, cont
Check Lipid and A1C as part of acute stroke work up
cont BURGLARY INVESTIGATOR Crestor
Neuro CS
PT OT eval
# Type 2 diabetes mellitus
Carb control diet
cover with ISS
# Obesity due to excess calories
BMI 34
# Hyperlipidemia
cont BURGLARY INVESTIGATOR Crestor
# Hypothyroidism (h/o Thyroid cancer s/p total thyroidectomy)
Cont BURGLARY INVESTIGATOR Synthroid
# Crohn's disease
# Depression/ Anxiety
mood stable
DVT ppx: lovenox SQ
FC
[2023-10-08 16:18] LABS: HDL Cholesterol 70 mg/dl; LDL Cholesterol, Calculated 47 mg/dl; Total Cholesterol 136 mg/dl (50-199); Triglyceride 99 mg/dl (10-149); Very Low Density Lipoprotein 19 mg/dl (0-30)
[2023-10-08 18:08] LABS: Glucose - Point of Care 91 mg/dl (70-99)
[2023-10-08] MEDS: LOVENOX SC (18:29)
[2023-10-08 21:14] LABS: Glucose - Point of Care 138 mg/dl (70-99)
[2023-10-09] VITALS (8 sets, daily range): BP systolic 129–157; BP diastolic 75–92; PULSE 74–75; O2SAT 96
[2023-10-09] MEDS: TYLENOL 650 MG PO ×2 (01:48→07:49)
[2023-10-09] MEDS: SYNTHROID 88 MCG PO (05:31)
[2023-10-09 07:08] LABS: Glucose - Point of Care 149 mg/dl (70-99)
[2023-10-09] MEDS: PLAVIX 75 MG PO (07:42)
[2023-10-09] MEDS: CRESTOR 5 MG PO (07:42)
[2023-10-09] MEDS: LOW STRENGTH ASPIRIN 81 MG PO (07:42)
[2023-10-09 08:45] LABS: Hematocrit 40.5 % (37.0-47.0); Hemoglobin 14.2 g/dL (12.0-16.0); Mean Corp Hgb Conc. 35.1 g/dL (33.0-37.0); Mean Corpuscular Hgb 30.7 pg (27.0-31.0); Mean Corpuscular Volume 87.5 fL (81.0-99.0); Mean Platelet Volume 10.1 fL (7.4-10.4); Platelet Count 205 10^3/uL (130-400); Red Blood Cell Count 4.63 10^6/uL (4.20-5.40); Red Cell Dist. Width 13.1 % (11.5-14.5); White Blood Cell Count 6.5 10^3/uL (4.8-10.8)
[2023-10-09 08:57] LABS: Glycohemoglobin (HgbA1c) 6.2 % (4.0-5.6)
--- NOTE | 2023-10-09 08:58 | W.PN.HOSP.TC ---
Today's Communication/Plan
-
see A/P
Assessment / Plan
Assessment / Plan
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 She also had blurred vision 4 days ago which has resolved.
Patient also complained of mild shortness of breath with exertion.
She denies to other symptoms such as fever/chills etc.
A/P:
# R arm and leg weakness, possible TIA/stroke
CTH and CTA showed no acute intracranial abnormality.
Check MRI brain
Cont ASA/Plavix
LDL 47 , cont STEAMER BLOCKER Crestor
Follow A1C
Neuro CSed
PT OT eval
# Type 2 diabetes mellitus
Carb control diet
cover with ISS
# Obesity due to excess calories
BMI 34
# Hyperlipidemia
cont STEAMER BLOCKER Crestor
# Hypothyroidism (h/o Thyroid cancer s/p total thyroidectomy)
Cont STEAMER BLOCKER Synthroid
# Crohn's disease
# Depression/ Anxiety
mood stable
DVT ppx: lovenox SQ
FC
Anticipated Discharge: 24 - 48 hours
Subjective/Interval History
-
Date of Service: October 09, 2023
Objective Data
-
Labs:
Laboratory Results
10/09/23
08:10
WBC 6.5
Hgb 14.2
Hct 40.5
Plt Count 205
Sodium Pending
Potassium Pending
Chloride Pending
Carbon Dioxide Pending
BUN Pending
Creatinine Pending
Glucose Pending
Calcium Pending
Vital Signs:
Vital Signs
Temp Pulse Resp BP Pulse Ox
36.7 C 79 18 138/91 94
10/09/23 08:00 10/09/23 08:00 10/09/23 08:00 10/09/23 08:00 10/09/23 08:00
Review of Systems
-
Neuro: Reports Weakness (R arm, R leg )
Physical Exam
-
General: Well Developed, Well Nourished, No Apparent Distress, Comfortable and Conversant; Negative Respiratory Distress
HEENT: Normocephalic, Atraumatic, Nose Appears Normal and Ears Appear Normal; Negative Oxygen
Respiratory: Clear to Auscultation and Non Labored Respirations; Negative Accessory Resp Muscle Use
Cardiac: Regular Rhythm and S1/S2
GI: Soft, Nontender, Nondistended and Normal Bowel Sounds
Skin: Warm and Dry
Neuro: Awake, Alert, Oriented, AO x 3 and Other (R leg weakness)
Psych: Calm and Intact Judgement/Insight
Data Reviewed
-
CT Scan: Report Reviewed by me
Labs: Labs Reviewed by me
[2023-10-09 09:07] LABS: Blood Urea Nitrogen 13 mg/dl (7-17); Calcium 9.8 mg/dl (8.4-10.2); Carbon Dioxide 23 mmol/L (22-30); Chloride 105 mmol/L (98-107); Estimated Creatinine Clearance 96 ml/min; Glucose 135 mg/dl (70-99); HDL Cholesterol 75 mg/dl; LDL Cholesterol, Calculated 47 mg/dl; Magnesium 1.9 mg/dl (1.6-2.3); Potassium 4.1 mmol/L (3.5-5.1); Sodium 138 mmol/L (135-145); Total Cholesterol 145 mg/dl (50-199); Triglyceride 116 mg/dl (10-149); Very Low Density Lipoprotein 23 mg/dl (0-30); eGFR > 60.00
--- NOTE | 2023-10-09 09:19 | PTOTSP ---
ST Acute Care Evaluations
Pt currently presents with oral, pharyngeal, and esophageal parameters that are generally WFL. No overt s/s of penetration or aspiration noted at bedside. Pt also described symptoms of increased reflux with and without PO intake in the past 2 weeks
- these s/s should be worked up as an OP.
Pt also demonstrates a mild neurocognitive impairment 2/2 acute CVA vs aging process. Pt experiences increased difficulty with tasks that target her working memory and short term recall. Pt would benefit from additional OP work-up upon d/c.
Recommendations:
- Continue with regular solids, thin liquids, meds as tolerated.
- General aspiration precautions & reflux precautions.
- Consider OP GI work-up for recent increase in reflux symptoms.
- EXPRESSIVE MUSIC THERAPIST to follow-up to ensure pt continues to safely consume her recommended diet consistencies as well as to target her mild neurocognitive deficits.
- Pt would benefit from a comprehensive speech, language, and cognitive EXPRESSIVE MUSIC THERAPIST evaluation upon d/c at the ambulatory center.
--- NOTE | 2023-10-09 10:56 | CM ---
Patient seen bedside, initial assessment completed. Patient resides with her daughter in a ranch style home, one step to enter. Patient reports she has had multiple foot surgeries and has the following equipment at home: grab bars in shower, cane,
walkers, crutches, knee scooter, commode, shower chairs. Patient reports history of [facility] in past, denies SNF. Patient confirms PCP Dr. Baker, pharmacy [facility] in [place], confirms prescription coverage. Patient denies food,
housing/utility, and transportation insecurities at home. Patient declines VN needs at this time. CM will watch for PT/OT evals for recommendations.
Plan; home no needs likely.
[2023-10-09 11:51] LABS: Glucose - Point of Care 147 mg/dl (70-99)
[2023-10-09 16:22] LABS: Glucose - Point of Care 89 mg/dl (70-99)
[2023-10-09] MEDS: LOVENOX 40 MG SC (16:58)
[2023-10-09 21:30] LABS: Glucose - Point of Care 104 mg/dl (70-99)
[2023-10-10] VITALS (7 sets, daily range): BP systolic 131–158; BP diastolic 75–90; PULSE 75; O2SAT 96
[2023-10-10] MEDS: TYLENOL 650 MG PO (00:07)
[2023-10-10] MEDS: MOTRIN 800 MG PO ×2 (01:59→22:26)
[2023-10-10] MEDS: SYNTHROID 88 MCG PO (06:07)
[2023-10-10 08:07] LABS: Glucose - Point of Care 125 mg/dl (70-99)
[2023-10-10] MEDS: PLAVIX 75 MG PO (08:25)
[2023-10-10] MEDS: CRESTOR 5 MG PO (08:25)
[2023-10-10] MEDS: LOW STRENGTH ASPIRIN 81 MG PO (08:25)
--- NOTE | 2023-10-10 08:39 | CON.NEURO4 ---
Consultation - Neurology 4
-
CONSULTING PHYSICIAN: David Rodriguez MD(Neurology)
REFERRING PHYSICIAN: Hospitalist
DICTATED BY: David Rodriguez MD
DATE/TIME OF REQUEST: October 08, 2023
DATE/TIME OF CONSULTATION: October 08, 2023 1830
Reason for Consultation: Weakness(R)
History of Present Illness:
This is a 68 year old right handed female who has presented to the hospital with blurred vision and right-sided weakness. She gives a history of diabetes hypertension hypothyroidism and Crohn's disease and depression and anxiety and was in usual
state of health till Sunday evening when she had an episode of blurred vision which she describes as a curtain dropping over her visual field from top to bottom. Her vision improved and returned to normal. She did not seek medical attention. The
next morning she had difficulty using her right arm. She had difficulty with activities of daily living and she had difficulty walking. She did not seek any medical attention
-
Past Medical History: As above
Surgical History: Orthopedic procedures
Family History: Noncontributory
Social History: Old lives at home alone does not smoke or use alcohol
Allergies: No known allergies
Home Medications: See addendum
Review of Symptoms:
Patient denies any fever, headache, chest pain, shortness of breath, GI or symptoms.
�Per the HPI.�All systems are reviewed negative except above.
�- Remove any of these problems that patient may have complained about in the HPI.
�- If patient is unresponsive, intubated or demented, say 'Per the HPI. I am unable to obtain a complete review of systems�because of patient's inability to provide history.'
Vital Signs:
The patient has a blood pressure of
Temp Pulse Resp BP Pulse Ox
36.8 C 60 18 136/74 95
Physical Exam:
The patient is afebrile, heart sounds S1 and S2 are (regular / irregular), and chest is clear to auscultation bilaterally.
NIH Stroke Scale (if applicable):
I performed the NIH stroke scale on the patient on admission. The patient scored 4:
Neurologic Examination:
The patient is awake, alert and oriented x 3. (He/She) is able to follow commands and answer questions appropriately. There is no aphasia or dysarthria. On cranial nerve assessment, pupils are 3 mm bilateral, round and reactive to light and
accommodation. Visual delgado are full. Extraocular movements are intact. Facial sensations are intact and bilaterally symmetrical, there is no facial asymmetry. Hearing is intact bilaterally to normal conversation volume. Tongue palate and uvula
are midline. Sternocleidomastoid strengths are full bilaterally.
Motor strengths are 4/5 right upper and lower extremities on medical research Ambler scale. There is right pronator drift.
Deep tendon reflexes are 2+ bilateral upper and lower extremities and Babinski is absent bilaterally.
Sensations of pain, touch, temperature and vibration are intact and bilaterally symmetrical. Coordination is dysmetric by finger to nose right upper extremity .
Gait is unsteady. Romberg's positive
Lab Results:
Neuro Imaging: CT head shows cortical atrophy small vessel disease mild ventriculomegaly. Left pontine ischemia
Impression: Ms. TRISTEN MAYBERRY is a 68 year old F who has presented to the hospital with symptoms of right-sided weakness and transient visual obscuration secondary to subcortical small vessel disease of the left ilene
Patient has the following risk factors for their symptoms: Diabetes hypertension
IV Tenecteplase/IAT candidacy: Not a candidate for intra-arterial thrombolysis due to onset of symptoms on Sunday, October 04
Recommendations:
1. Aspirin 81
2. Plavix 75
3. Blood pressure control
4. MRI head
5. Lipitor
6. Strict blood sugar control
7. Echocardiogram
8. PT OT
9. Speech therapy
Discussed patient care with: Hospitalist
--- NOTE | 2023-10-10 09:01 | W.PN.NEURO.1 ---
Today's Communication / Plan
-
Continue dual antiplatelet therapy
Continue blood pressure management
Neuro Assessment/Plan
Assessment
68-year-old lady with history of hypertension and diabetes with right-sided weakness secondary to left pontine infarct
Plan
Continue aspirin 81 mg
Continue Plavix
Strict blood pressure control
Strict blood sugar management
Subjective/Objective
Subjective Data
Date of Service: October 09, 2023 0900
Patient continues to be weak on the right side but independent with normal speech and able to swallow without difficulty
Objective Data
Vital Signs
Temp Pulse Resp BP Pulse Ox
37.1 C 60 18 143/82 94
10/10/23 03:35 10/10/23 03:35 10/10/23 03:35 10/10/23 03:35 10/10/23 03:35
Lab Results
10/09/23 08:10
10/09/23 08:10
Sodium 138 mmol/L (135-145) 10/09/23 08:10
Potassium 4.1 mmol/L (3.5-5.1) 10/09/23 08:10
BUN 13 mg/dl (7-17) 10/09/23 08:10
Glucose 135 mg/dl (70-99) H 10/09/23 08:10
Calcium 9.8 mg/dl (8.4-10.2) 10/09/23 08:10
LDL Cholesterol, Calc 47 mg/dl 10/09/23 08:10
Patient Allergies
No Known Allergies Allergy (Verified 10/08/23 11:19)
Review of Systems
-
History Source: Patient
All other systems: Reviewed and negative
Constitutional: No Symptoms
EENT: No Symptoms Reported
Respiratory: No Symptoms
Cardiac: No Symptoms
Abdomen/GI: No Symptoms
Genitourinary: No Symptoms
Musculoskeletal: Muscle Weakness
Skin: No Symptoms
Neuro: Weakness and Ataxia
Endocrine: No Symptoms
Hematologic / Lymphatic: No Symptoms
Allergy / Immunology: No Symptoms
Physical Exam
-
General: Well Developed, Well Nourished, No Apparent Distress and Comfortable
Eyes: Able to visualize OU, Unremarkable, No Ptosis and PERRLA
HEENT: Normocephalic, Atraumatic and Anicteric
Neck: No Bruits Bilaterally
Respiratory: Clear to Auscultation
Cardiac: Regular Rhythm, No Murmur and S1/S2
GI: Normal Bowel Sounds
Skin: Unremarkable
Extremities: No Clubbing
Psych: Unremarkable and Intact Judgement/Insight
Extended Neurological Exam
Mood & Affect: Mood Unremarkable and Affect Unremarkable
Attention Span & Concentration: Awake, Alert, Interactive and No Difficulty with 2 Step Request
Memory: Unremarkable, Able to Recall and Recalls Short Term
Tremor: Hand Tremor Absent and Head Tremor Absent
Speech: Quality Unremarkable and Quantity Unremarkable
Cranial Nerve II: Left Eye: Pupillary Reactivity Unremarkable and Pupillary Size Unremarkable
Cranial Nerve II: Right Eye: Pupillary Reactivity Unremarkable and Pupillary Size Unremarkable
Cranial Nerves III, IV, : Extraocular Movement: Extraocular Movement Full in all Directions
Cranial Nerve V: Facial Sensation: Facial Sensation Unremarkable to Cold
Cranial Nerve VII: Facial Symmetry: Normal Facial Symmetry
Cranial Nerve VIII: Hearing: Unremarkable Hearing to Normal Conversational Volume
Cranial Nerves IX, X: Palate Movement: Palate Elevation Symmetric
Cranial Nerve XI: Shoulder Shrug: Unremarkable
Cranial Nerve XII: Tongue Protusion: Midline
Muscle Strength, Overall: Reduced on Right
Muscle Bulk & Tone: Bulk Unremarkable and Tone Unremarkable
Pronator Drift: Drift in Right Upper Extremity
Deep Tendon Reflexes: Unremarkable Throughout
Cold Sensation: Unremarkable
Vibration Sensation: Unremarkable
Touch Sensation: Unremarkable
Coordination: Dnekpr-[id number] Testing Unremarkable
Babinski Sign: Absent Bilaterally
Gait & Station: Up from Seated Without Problem, Up from Lying with Difficulty and Romberg Test Positive
Modified Milvia Score (MRS)
-
Modified Newton Scale (mRS): No significant disability. Able to carry out usual activities.
Score: 1
--- NOTE | 2023-10-10 09:23 | W.PN.HOSP.TC ---
Today's Communication/Plan
-
check echo and discharge planning with HH
Assessment / Plan
Assessment / Plan
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 She also had blurred vision 4 days ago which has resolved.
Patient also complained of mild shortness of breath with exertion.
She denies to other symptoms such as fever/chills etc.
A/P:
# R arm and leg weakness, possible TIA/stroke
CTH and CTA showed no acute intracranial abnormality.
MRI brain noted focal area of acute to subacute infarction involving the left anterolateral aspect of the superior ilene.
Cont ASA/Plavix total 21 days, then ASA after that
LDL 47 , cont APPLICATION SUPPORT ENGINEER Crestor
Check echo
A1C 6.2%
Neuro on board
PT OT cleared for HH
# Type 2 diabetes mellitus
Carb control diet
A1C 6.2%
Cont metformin
cover with ISS
# Obesity due to excess calories
BMI 34
# Hyperlipidemia
cont APPLICATION SUPPORT ENGINEER Crestor
# Hypothyroidism (h/o Thyroid cancer s/p total thyroidectomy)
Cont APPLICATION SUPPORT ENGINEER Synthroid
# Crohn's disease
# Depression/ Anxiety
mood stable
DVT ppx: Lovenox SQ
FC
Anticipated Discharge: Today
Subjective/Interval History
-
Date of Service: October 10, 2023
Objective Data
-
Vital Signs:
Vital Signs
Temp Pulse Resp BP Pulse Ox
37.1 C 60 18 143/82 94
10/10/23 03:35 10/10/23 03:35 10/10/23 03:35 10/10/23 03:35 10/10/23 03:35
I&O
10/09/23 10/10/23 10/11/23
06:59 06:59 06:59
Intake Total 600 / 600
Balance 600 / 600
Review of Systems
-
Neuro: Reports Weakness (R arm, R leg )
Physical Exam
-
General: Well Developed, Well Nourished, No Apparent Distress, Comfortable and Conversant; Negative Respiratory Distress
HEENT: Normocephalic, Atraumatic, Nose Appears Normal and Ears Appear Normal; Negative Oxygen
Respiratory: Clear to Auscultation and Non Labored Respirations; Negative Accessory Resp Muscle Use
Cardiac: Regular Rhythm and S1/S2
GI: Soft, Nontender, Nondistended and Normal Bowel Sounds
Skin: Warm and Dry
Neuro: Awake, Alert, Oriented, AO x 3 and Other (R leg weakness)
Psych: Calm and Intact Judgement/Insight
Data Reviewed
-
CT Scan: Report Reviewed by me
MRI: Report Reviewed by me and Discussed with Patient
Labs: Labs Reviewed by me
--- NOTE | 2023-10-10 11:06 | CM ---
Patient seen bedside, discussed PT recommendation of outpatient therapy. Patient agreeable, script obtained for outpatient PT/OT, placed in patients chart. IMM reviewed, signed, placed in chart. Patient reports her daughter will provide
transportation home. CM will continue to follow for all discharge planning needs.
Plan; home with script for outpatient therapy
[2023-10-10 11:42] LABS: Glucose - Point of Care 106 mg/dl (70-99)
[2023-10-10 16:33] LABS: Glucose - Point of Care 105 mg/dl (70-99)
[2023-10-10] MEDS: LOVENOX 40 MG SC (17:10)
--- NOTE | 2023-10-10 17:38 | PTCARENOTE ---
Notified the provider of the patient's ECHO results, d/c cancelled.
[2023-10-10 21:42] LABS: Glucose - Point of Care 93 mg/dl (70-99)
[2023-10-11 03:22] VITALS: BP 142/78
[2023-10-11 06:05] LABS: Glucose - Point of Care 116 mg/dl (70-99)
[2023-10-11] MEDS: SYNTHROID 88 MCG PO (06:05)
[2023-10-11 07:00] VITALS: BP 143/79
--- NOTE | 2023-10-11 07:35 | CON.CAR ---
Addendum entered and electronically signed by Hany Obando MD 10/11/23 13:58:
Transesophageal echo does reveal a small to moderate-sized mobile echodensity attached to the posterior annulus of the mitral valve. It remains on the ventricular side of the valve.
Will ask CT surgery to evaluate and discuss at valve meeting tomorrow. May consider cardiac MRI to better evaluate mass.
cont ASA/Plavix for now. Will discuss with team regarding full anticoagulation or not.
Check blood cultures.
Addendum entered and electronically signed by Hany Obando MD 10/11/23 10:30:
I saw and examined the patient.
The Die Maker Apprentice's note was reviewed and I agree with the note.
Comment:
GEN: No distress, awake, Ox3
HEENT: supple, anicteric, mmm
LUNGS: CTA, no wheezes/rales
CV: Reg, S1/S2, 1/6 syst LSB, no gallop
ABD: soft, BS+, NT/ND
EXT: No edema
NEURO: Gross non-focal
SKIN: No rash
Plan:
TTE with mobile echo density in the mitral annular region. Plan for SKYE today with recent CVA
Cont ASA, Plavix and Crestor.
Original Note:
Consultation
Consultation Request
Date/Time Consultation Requested: 10/11/2023
Date/Time Consultation Performed: 10/11/2023
Requesting Provider: Dr. Teixeira
Performing Provider: Dr. Obando
Reason for Consultation: SKYE
Medical History
-
History of Present Illness:
HPI: Afua is a 68 year old female with PMH of DM2, hyperlipidemia, hypothyroidism, melanoma, thyroid cancer, breast cancer, and Crohn's disease. She presented to [facility] for evaluation of R arm and leg weakness with associated vision changes.
Symptoms started a few days prior to arrival. In ER, CT of head was negative, however given concerning symptoms, she was admitted and underwent MRI of brain which revealed subacute infarct of the L anterolateral aspect of the superior ilene. She was
started on aspirin and Plavix by neurology. Echo 10/09 showed preserved EF, however there was a small calcified mobile echodensity noted on the mitral valve. Cardiology consulted for evaluation and consideration for SKYE. She reports she has been
feeling well, but has had some SOB w/ exertion noted. Reports this has been going on for a while though. No recent changes.
PMH:
DM 2
Hyperlipidemia
Hypothyroidism
h/o melanoma
h/o thyroid cancer
h/o breast cancer s/p chemo & radiation
Crohn's disease
Past Medical History
Past Medical History: Other (In HPI)
Past Surgical History: Other (R breast lumpectomy, thyroidectomy, bunionectomy, gastric volvulus repair, R hip replacement)
Social History
Tobacco: Former Smoker
Alcohol: Occasional
Drug: None
Personal:
Employment: Retired
Family History
Family History: CAD and Cancer
Allergies / Home Medications
Allergy/AdvReac Type Severity Reaction Status Date / Time
No Known Allergies Allergy Verified 10/08/23 11:19
�Medication �Instructions �Recorded �Confirmed �Type
levothyroxine 88 mcg tablet 88 mcg PO DAILY Thyroid 11/08/21 10/08/23 History
metformin 500 mg tablet 500 mg PO DAILY Diabetes 11/08/21 10/08/23 History
cetirizine 10 mg tablet (Zyrtec) 10 mg PO DAILYPRN PRN allergies 11/09/21 10/08/23 History
bismuth subsalicylate 262 mg 524 mg PO DAILYPRN PRN stomach 10/08/23 10/08/23 History
tablet (Pepto-Bismol) issues
ibuprofen 400 mg tablet 800 mg PO Q8HPRN PRN mild pain 10/08/23 10/08/23 History
infliximab 100 mg intravenous 100 mg IV Q7W Autoimmune Disorder 10/08/23 10/08/23 History
solution (Remicade)
risedronate 150 mg tablet 150 mg PO QMONTH calcium 10/08/23 10/08/23 History
aspirin 81 mg chewable tablet 81 mg PO DAILY #30 tabs 10/10/23 Rx
clopidogrel 75 mg tablet 75 mg PO DAILY #20 tabs 10/10/23 Rx
rosuvastatin 10 mg tablet 5 mg (1/2 x 10 mg) PO DAILY High 10/10/23 Rx
Cholesterol #30 tabs
Review of Systems
-
History Source: Patient
All other systems: Negative unless noted
Physical Exam
Vital Signs
Temp Pulse Resp BP Pulse Ox
98.1 F 70 18 142/78 97
10/11/23 03:22 10/11/23 03:22 10/11/23 03:22 10/11/23 03:22 10/11/23 03:22
Lab Results
10/09/23 08:10
10/09/23 08:10
Physical Exam
General: Well Developed, Well Nourished and No Apparent Distress
HEENT: Normocephalic, Anicteric and Moist Mucous Membranes
Respiratory: Clear and Non Labored Respirations
Cardiac: S1/S2 and Regular Rhythm
Musculoskeletal: No Clubbing, No Cyanosis and No Edema
Skin: Warm and Dry
Neuro: AO x 3 and Nonfocal/Grossly Intact
Psych: Calm
Impression / Plan
-
PCP: Dr. Baker
Screwmaker Automatic: None prior to arrival, initially seen by Dr. Obando
Impression:
Presented with weakness
L pontine infarct on MRI
Calcified mobile echodensity of mitral valve
DM 2
Hyperlipidemia
Hypothyroidism
h/o melanoma
h/o thyroid cancer
h/o breast cancer s/p chemo & radiation
Crohn's disease
Echo 04/02/2023: EF 50%, GLS -16.8%, stage I diastolic dysfunction, MAC with mild MR, aortic sclerosis, trace AI
Echo 10/10/2023: EF 50%, mild cLVH, stage I diastolic dysfunction, MAC with trace MR, small calcified mobile echodensity surrounding the mitral annulus and posterior leaflet that could be attached to a chordal structure, aortic sclerosis without
stenosis, mild AI.
Plan:
-Presented with R sided weakness and vision changes. Found to have new L pontine infarct on brain MRI.
-Continue aspirin and plavix per neurology.
-LDL 47. Continue crestor 5mg daily.
-Echo 10/09 noted preserved EF with mobile echodensity surrounding the mitral annulus and posterior leaflet.
-Plan is for SKYE today for further evaluation of mitral valve. NPO. Await results.
-EKG SR with 1st degree AV block. No Afib noted on review of telemetry.
-Otherwise appears stable from a cardiac standpoint.
HPI: Afua is a 68 year old female with PMH of DM2, hyperlipidemia, hypothyroidism, melanoma, thyroid cancer, breast cancer, and Crohn's disease. She presented to [facility] for evaluation of R arm and leg weakness with associated vision changes.
Symptoms started a few days prior to arrival. In ER, CT of head was negative, however given concerning symptoms, she was admitted and underwent MRI of brain which revealed subacute infarct of the L anterolateral aspect of the superior ilene. She was
started on aspirin and Plavix by neurology. Echo 10/09 showed preserved EF, however there was a small calcified mobile echodensity noted on the mitral valve. Cardiology consulted for evaluation and consideration for SKYE. She reports she has been
feeling well, but has had some SOB w/ exertion noted. Reports this has been going on for a while though. No recent changes.
Data Reviewed
-
EKG: Tracing Personally Visualized and interpreted
CT Scan: Report Reviewed by me
MRI: Report Reviewed by me
Medical Tests (Nuc Med, Echo etc): Report Reviewed by me
Labs: Labs Reviewed by me
Old Records: Reviewed
[2023-10-11] MEDS: CRESTOR 5 MG PO (08:14)
[2023-10-11] MEDS: LOW STRENGTH ASPIRIN 81 MG PO (08:14)
[2023-10-11] MEDS: PLAVIX 75 MG PO (08:14)
--- NOTE | 2023-10-11 09:18 | W.PN.HOSP.TC ---
Today's Communication/Plan
-
see A/P
Assessment / Plan
Assessment / Plan
HPI: 68 yo F with PMH Hypothyroidism, Crohn's disease; p/w R arm and leg weakness that started 4 days GLAZ[employer] GL[employer]. She also had blurred vision 4 days ago which has resolved.
Patient also complained of mild shortness of breath with exertion.
She denies to other symptoms such as fever/chills etc.
A/P:
# R arm and leg weakness, due to acute stroke
CTH and CTA showed no acute intracranial abnormality.
MRI brain noted focal area of acute to subacute infarction involving the left anterolateral aspect of the superior ilene.
Cont ASA/Plavix total 21 days, then ASA after that
LDL 47 , cont [employer] Crestor
echo noted new mobile echodensity of mitral valve, EF 50%, Stage I diastolic dysfunction
Card CS for SKYE eval
A1C 6.2%
PT OT cleared for HH
# Type 2 diabetes mellitus
Carb control diet
A1C 6.2%
Cont metformin
cover with ISS
# Obesity due to excess calories
BMI 34
# Hyperlipidemia
cont [employer]LA[employer] GL[employer] Crestor
# Hypothyroidism (h/o Thyroid cancer s/p total thyroidectomy)
Cont [employer]LA[employer] Synthroid
# Crohn's disease
# Depression/ Anxiety
mood stable
DVT ppx: Lovenox SQ
FC
DW RN
DW Neuro
Anticipated Discharge: Within 24 hours
Subjective/Interval History
-
Date of Service: October 11, 2023
Objective Data
-
Vital Signs:
Vital Signs
Temp Pulse Resp BP Pulse Ox
36.6 C 67 16 143/79 96
10/11/23 07:00 10/11/23 07:00 10/11/23 07:00 10/11/23 07:00 10/11/23 07:00
I&O
10/10/23 10/11/23 10/12/23
06:59 06:59 06:59
Intake Total 600 / 600 1080 / 1080
Balance 600 / 600 1080 / 1080
Review of Systems
-
Neuro: Reports Weakness (R arm, R leg )
Physical Exam
-
General: Well Developed, Well Nourished, No Apparent Distress, Comfortable and Conversant; Negative Respiratory Distress
HEENT: Normocephalic, Atraumatic, Nose Appears Normal and Ears Appear Normal; Negative Oxygen
Respiratory: Clear to Auscultation and Non Labored Respirations; Negative Accessory Resp Muscle Use
Cardiac: Regular Rhythm and S1/S2
GI: Soft, Nontender, Nondistended and Normal Bowel Sounds
Skin: Warm and Dry
Neuro: Awake, Alert, Oriented, AO x 3 and Other (R leg weakness)
Psych: Calm and Intact Judgement/Insight
Data Reviewed
-
CT Scan: Report Reviewed by me
MRI: Report Reviewed by me and Discussed with Patient
Medical Tests (Nuc Med, Echo etc): Report Reviewed by me and Discussed with Patient
Labs: Labs Reviewed by me
[2023-10-11 12:33] LABS: Glucose - Point of Care 104 mg/dl (70-99)
--- NOTE | 2023-10-11 13:05 | W.PN.UPDATE ---
Addendum entered and electronically signed by ARTUR Chicas 10/11/23 14:14:
Documentation entered on incorrect patient.
Original Note:
Update Note
Progress Note Update
Patient with desaturation to 77% on room air with ambulation. Patient recovers to 92% with 2 L nasal cannula post ambulation. Due to hypoxia, patient qualifies for home O2 at 2 L nasal on discharge.
--- NOTE | 2023-10-11 13:31 | CONSULT.CT ---
Addendum entered and electronically signed by Margarito Trejo MD 10/12/23 09:13:
CARDIAC SURGERY ATTENDING:
It was my pleasure to evaluate Mrs. Afua Bermudez. I have reviewed her history, presentation, and available imaging. There is a mobile calcified echodensity underlying the posterior leaflet of the mitral valve and partially continuous with her
mitral annular calcifications. This appears to be attached to a basal/tertiary cord of her mitral valve. She also has several other chordal/subvalvular structures with additional calcifications. It is not clear to me that her subacute CVA is
secondary to embolism from this mitral valve pathology. In addition, given her normal functioning valve and several chordal calcifications, I would recommend a nonsurgical approach at this time. Compounding any surgical intervention is her history
of 30 rounds of radiation to her chest following breast CA.
Her case has been discussed in multidisciplinary fashion.
Will sign off. Please call with any questions or concerns.
Margarito Trejo MD
[phone]
Original Note:
Consultation
-
Date/Time Consultation Requested: 10/10
Date/Time Consultation Performed: 10/10
Requesting Provider: Dr. Hany Alexander
Performing Provider: Serene Shaw for Dr. Margarito Trejo
Reason for Consultation: mitral valve mass
Patient History
Physicians
Family Physician: Nisha Baker
Inpatient Rug Designer: Dr. Alexander
History of Present Illness
Patient is a 68-year-old female who was admitted to [facility] emergency 10/08/2023 with a 4-day history of right-sided weakness and blurred vision. She initially thought this was vertigo and presented to her chiropractic doctor who
referred her to the emergency room for further evaluation. Patient found to have a left anterior lateral aspect of the superior ilene acute and subacute CVA. She was treated with aspirin and Plavix. No residual deficits were identified. A
transthoracic echocardiogram completed on 10/09 reported a small calcified mobile echodensity surrounding mitral annulus aortic insufficiency. Transesophageal echogram completed on 08/10, reported a mobile calcified echodensity attached to the
posterior annulus of the mitral valve, measuring 10 mm x 6 mm. Mild mitral regurgitation. No mitral stenosis. There were also calcifications of the chordal structures. CT surgery was consulted to comment on need for surgical intervention.
Past Medical History
Past Medical History: Cancer (Right breast cancer status post mastectomy with radiation and chemotherapy 17 years ago; left facial melanoma removal), Hypercholesterolemia, Hypothyroidism (Status post thyroid cancer with thyroidectomy in 1981), NIDDM
(Prediabetes), Radiation (Right breast 17 years ago) and Other (Nephrolithiasis-passed stone few months ago; osteoarthritis; Crohn's disease on chronic immunotherapy; cataracts; Obesity (BMI 34.5))
Past Surgical History
Past Surgical History: Mastectomy (right breast lumpectomy; left facial melanoma removed; left total hip replacement 03/08) and Other (Bilateral cataract extraction with intraocular lens implant)
Dental History
Last dental evaluation was 6 months ago
Family History
Mother: N/A
Father: N/A
Social History
Alcohol: Occasional
Drug: None
Tobacco: Former Smoker (Quit 40 years ago)
Personal:
Living: With Family
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
Allergies
Allergy/AdvReac Type Severity Reaction Status Date / Time
No Known Allergies Allergy Verified 10/08/23 11:19
Home Medications
�Medication �Instructions �Recorded �Confirmed �Type
levothyroxine 88 mcg tablet 88 mcg PO DAILY Thyroid 11/08/21 10/08/23 History
metformin 500 mg tablet 500 mg PO DAILY Diabetes 11/08/21 10/08/23 History
cetirizine 10 mg tablet (Zyrtec) 10 mg PO DAILYPRN PRN allergies 11/09/21 10/08/23 History
bismuth subsalicylate 262 mg 524 mg PO DAILYPRN PRN stomach 10/08/23 10/08/23 History
tablet (Pepto-Bismol) issues
ibuprofen 400 mg tablet 800 mg PO Q8HPRN PRN mild pain 10/08/23 10/08/23 History
infliximab 100 mg intravenous 100 mg IV Q7W Autoimmune Disorder 10/08/23 10/08/23 History
solution (Remicade)
risedronate 150 mg tablet 150 mg PO QMONTH calcium 10/08/23 10/08/23 History
aspirin 81 mg chewable tablet 81 mg PO DAILY #30 tabs 10/10/23 Rx
clopidogrel 75 mg tablet 75 mg PO DAILY #20 tabs 10/10/23 Rx
rosuvastatin 10 mg tablet 5 mg (1/2 x 10 mg) PO DAILY High 10/10/23 Rx
Cholesterol #30 tabs
Review of Systems
-
History Source: Patient
HEENT: Reports Visual Changes (Blurred vision now resolved) and Other (Occasional sensation of difficulty swallowing)
Respiratory: Reports No Symptoms
Cardiac: Reports No Symptoms
Abdomen/GI: Reports No Symptoms
: Reports No Symptoms
Musculoskeletal: Reports No Symptoms
Skin: Reports No Symptoms
Neurological: Reports Weakness (Right-sided weakness now resolved)
Vascular: Reports No Symptoms
Physical Exam
Vital Signs
Temp 97.8 F 10/11/23 07:00
Temp route: Oral 10/11/23 07:00
Pulse 67 10/11/23 07:00
Rhythm: Normal sinus rhythm 10/10/23 19:15
With- Bundle Branch Block Confi, First Degree Heart Block 10/10/23 19:15
Resp Rate 16 10/11/23 07:00
Blood pressure 143/79 10/11/23 07:00
Blood pressure extremity used: Left upper arm 10/11/23 07:00
Position: Lying 10/11/23 07:00
MAP (cuff-Katie Monitor) 119 10/08/23 17:00
SaO2 96 10/11/23 07:00
Oxygen Mode of Delivery Room air 10/11/23 07:00
Pulse Ox at Rest 96 10/10/23 10:40
Can the patient verbally communicate their pain? Yes 10/10/23 23:26
Pain scale rating: Asleep 10/10/23 23:26
Actual Weight 90.4 kg 10/08/23 11:34
Body Mass Index (BMI) 34.5 10/08/23 11:34
Supine- Blood Pressure 136/80 10/10/23 10:40
Supine- Pulse 75 10/10/23 10:40
Sitting- Blood Pressure 155/80 10/10/23 10:40
Sitting- Pulse 74 10/09/23 08:55
Heart rate after activity 84 10/09/23 08:56
Blood pressure after activity 142/82 10/09/23 08:56
Labs
10/09/23 08:10
10/09/23 08:10
Hemoglobin A1c 6.2 % (4.0-5.6) H 10/08/23 12:33
Exam
General: Well Developed and Well Nourished
HEENT: Normocephalic, Anicteric, Moist Mucous Membranes, Atraumatic and PERRLA
Neck: Trachea Midline
Respiratory: Clear
Cardiac: S1/S2 and Regular Rhythm
GI: Soft, Non Tender, Non Distended, Normal Bowel Sounds and Other (obese with pannus)
Rectal: Deferred by Provider
Skin: Warm and Dry
Neuro: AO x 3, No Motor Deficits and Nonfocal/Grossly Intact
Extremities: Pulses (+2/4 DP pulses B/L)
Lymph: No Lymphadenopathy
Psych: Calm
Assessment / Plan
-
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
Imaging reviewed with Dr. Margarito Trejo
Patient currently receiving aspirin and Plavix
Dr Trejo will discuss MRI findings with radiology and cardiology to render final decision
If deemed a surgical candidate>will need Plavix held x 5 days and Panelipse (last dental exam 6 months ago)
Data Reviewed
-
EKG: Report Reviewed by me and Discussed with Physician
Echo: Report Reviewed by me and Discussed with Physician
Radiology: Report Reviewed by me and Discussed with Physician
MRI: Report Reviewed by me and Discussed with Physician
Labs: Labs Reviewed by me and Discussed with Physician
[2023-10-11 14:17] VITALS: BP 166/93; PULSE 67; O2SAT 98
--- NOTE | 2023-10-11 14:17 | CM ---
Patient seen bedside, patients discharge canceled yesterday. Patient reports no needs to CM at this time. CM will continue to follow for all discharge planning needs.
Plan; home with script for outpatient PT.
[2023-10-11 15:00] VITALS: BP 121/71
[2023-10-11 16:37] LABS: Glucose - Point of Care 184 mg/dl (70-99)
[2023-10-11] MEDS: LOVENOX 40 MG SC (17:21)
[2023-10-11 17:27] LABS: Glucose - Point of Care 126 mg/dl (70-99)
[2023-10-11 20:23] VITALS: BP 112/75
[2023-10-11] MEDS: MOTRIN 800 MG PO (21:10)
[2023-10-11 22:30] LABS: Glucose - Point of Care 92 mg/dl (70-99)
[2023-10-11 23:28] VITALS: BP 134/80
[2023-10-12] MEDS: MELATONIN 3 MG PO ×2 (00:14→21:46)
[2023-10-12] MEDS: TYLENOL 650 MG PO (00:15)
[2023-10-12 04:04] VITALS: BP 127/77
[2023-10-12] MEDS: SYNTHROID 88 MCG PO (05:52)
[2023-10-12 07:59] LABS: Hematocrit 39.1 % (37.0-47.0); Hemoglobin 13.6 g/dL (12.0-16.0); Mean Corp Hgb Conc. 34.8 g/dL (33.0-37.0); Mean Corpuscular Hgb 31.3 pg (27.0-31.0); Mean Corpuscular Volume 90.1 fL (81.0-99.0); Mean Platelet Volume 9.9 fL (7.4-10.4); Platelet Count 174 10^3/uL (130-400); Red Blood Cell Count 4.34 10^6/uL (4.20-5.40); Red Cell Dist. Width 12.9 % (11.5-14.5)
[2023-10-12 08:10] VITALS: BP 133/83
[2023-10-12 08:15] LABS: Glucose - Point of Care 124 mg/dl (70-99)
[2023-10-12 08:25] LABS: Blood Urea Nitrogen 20 mg/dl (7-17); Carbon Dioxide 23 mmol/L (22-30); Chloride 105 mmol/L (98-107); Estimated Creatinine Clearance 82 ml/min; Glucose 128 mg/dl (70-99); Magnesium 1.9 mg/dl (1.6-2.3); Potassium 4.4 mmol/L (3.5-5.1); Sodium 137 mmol/L (135-145); eGFR > 60.00
[2023-10-12] MEDS: LOW STRENGTH ASPIRIN 81 MG PO (08:42)
[2023-10-12] MEDS: PLAVIX 75 MG PO (08:42)
[2023-10-12] MEDS: CRESTOR 5 MG PO (08:42)
--- NOTE | 2023-10-12 08:48 | W.PN.CARDCBS ---
Addendum entered and electronically signed by Hany Obando MD 10/12/23 11:00:
I saw and examined the patient.
The Doll Wigs Hackler's note was reviewed and I agree with the note.
Comment: GEN: No distress, awake, Ox3
HEENT: supple, anicteric, mmm
LUNGS: CTA, no wheezes/rales
CV: Reg, S1/S2, 1/6 syst LSB, no gallop
ABD: soft, BS+, NT/ND
EXT: No edema
NEURO: Gross non-focal
SKIN: No rash
Plan:
Remains in sinus rhythm. Case was discussed with multidisciplinary cardiovascular team. She has a mobile echodensity on her mitral annulus which is not attached to her valve leaflets.
This is likely a piece of calcium. At this point we will treat this conservatively.
While there is no evidence based studies on this, I would recommend Eliquis 5 mg p.o. twice daily for 3 months and then repeat a transthoracic echo.
I advised her if she has any new stroke symptoms to call or return to the emergency room immediately.
Would continue rosuvastatin and recommend stopping aspirin and Plavix.
Original Note:
Today's Communication / Plan
-
Continue aspirin and plavix for now, however may consider full anticoagulation
CM to assess cost of Eliquis
Follow up arranged
Impression / Plan
-
PCP: Dr. Baker
Answering Service Operator: None prior to arrival, initially seen by Dr. Obando
Impression:
Presented with weakness
L pontine infarct on MRI
Calcified mobile echodensity of mitral valve
DM 2
Hyperlipidemia
Hypothyroidism
h/o melanoma
h/o thyroid cancer
h/o breast cancer s/p chemo & radiation
Crohn's disease
Echo 04/02/2023: EF 50%, GLS -16.8%, stage I diastolic dysfunction, MAC with mild MR, aortic sclerosis, trace AI
Echo 10/10/2023: EF 50%, mild cLVH, stage I diastolic dysfunction, MAC with trace MR, small calcified mobile echodensity surrounding the mitral annulus and posterior leaflet that could be attached to a chordal structure, aortic sclerosis without
stenosis, mild AI.
SKYE 10/11/2023: EF 55-60%, no thrombus in CHARLES, mobile calcified echodensity attached to the posterior annulus of the mitral valve measuring 10mm x 6mm, mild MR, also calcifications of the chordal structures, mild AI, trace TR
Plan:
-Presented with R sided weakness and vision changes. Found to have new L pontine infarct on brain MRI.
-Placed on aspirin and Plavix per neurology recommendations.
-Echo 10/09 noted preserved EF with mobile echodensity surrounding the mitral annulus and posterior leaflet.
-Underwent SKYE 10/11/2023 for further evaluation as noted above.
-CT surgery consulted for discussion of mitral valve finding. No plan fur surgical intervention at this time. Blood cultures pending.
-May consider cardiac MRI as OP to further assess mass.
-Given CVA with mitral valve mass, may consider placing on full anticoagulation with Eliquis 5mg BID. Will have CM assess the cost.
-EKG SR with 1st degree AV block. No Afib noted on review of telemetry. Will arrange for further monitoring as OP.
-LDL 47. Continue Crestor 5mg daily.
-Follow up arranged.
HPI: Afua is a 68 year old female with PMH of DM2, hyperlipidemia, hypothyroidism, melanoma, thyroid cancer, breast cancer, and Crohn's disease. She presented to [facility] for evaluation of R arm and leg weakness with associated vision changes.
Symptoms started a few days prior to arrival. In ER, CT of head was negative, however given concerning symptoms, she was admitted and underwent MRI of brain which revealed subacute infarct of the L anterolateral aspect of the superior ilene. She was
started on aspirin and Plavix by neurology. Echo 10/09 showed preserved EF, however there was a small calcified mobile echodensity noted on the mitral valve. Cardiology consulted for evaluation and consideration for SKYE. She reports she has been
feeling well, but has had some SOB w/ exertion noted. Reports this has been going on for a while though. No recent changes.
Progress Note - Answering Service Operator
Subjective
Date of Service: October 12, 2023
Feeling well this AM. No chest pain or SOB.
Objective
Labs:
10/12/23 07:29
10/12/23 07:29
Labs
Hgb 13.6 g/dL (12.0-16.0) 10/12/23 07:
Hct 39.1 % (37.0-47.0) 10/12/23 07:29
Plt Count 174 10^3/uL (130-400) 10/12/23 07:29
Sodium 137 mmol/L (135-145) 10/12/23 07:29
Potassium 4.4 mmol/L (3.5-5.1) 10/12/23 07:29
BUN 20 mg/dl (7-17) H 10/12/23 07:29
Creatinine 0.7 mg/dL (0.6-1.0) 10/12/23 07:29
Glucose 128 mg/dl (70-99) H 10/12/23 07:29
Vital Signs and I&O:
Vital Signs
Temp Pulse Resp BP Pulse Ox
97.7 F 74 20 127/77 96
10/12/23 04:04 10/12/23 04:04 10/12/23 04:04 10/12/23 04:04 10/12/23 04:04
Vital Signs
Temp Pulse Resp BP Pulse Ox
97.7 F 74 20 127/77 96
10/12/23 04:04 10/12/23 04:04 10/12/23 04:04 10/12/23 04:04 10/12/23 04:04
Intake & Output
10/10/23 10/11/23 10/12/23 10/13/23
06:59 06:59 06:59 06:59
Intake Total 600 / 600 1080 / 1080 640 / 640
Balance 600 / 600 1080 / 1080 640 / 640
Physical Exam
Physical Exam
GEN: No distress, awake, Ox3
HEENT: supple, anicteric, mmm
LUNGS: CTA b/l, no wheezes/rales
CV: Reg, S1/S2, 1/6 syst murmur
EXT: No clubbing, cyanosis, or edema
NEURO: Gross non-focal
SKIN: Warm, dry, no rash
[2023-10-12 09:22] VITALS: BP 143/80; BP 161/83; PULSE 66; O2SAT 97
--- NOTE | 2023-10-12 10:01 | CM ---
Addendum entered by Margarita Ahn 10/12/23 11:09:
Plan: Discharge to home tomorrow; reported that daughter, Juanita will provide ride home
Patient verbalized concerns about out of pocket cost for Eliquis; advised to discuss with Retail Sales Vitamin Consultant
Eliquis 30 day coupon given to patient
Addendum entered by Margarita Ahn 10/12/23 10:23:
Texted Attending; Requested script for Outpatient PT to be left on chart.
Addendum entered by Margarita Ahn 10/12/23 10:21:
Plan: Discharge to home tomorrow
Original Note:
Case Management Consult completed; Attending notified and acknowledged via [facility] Text
Cost for Eliquis 5 mg BID #60 tabs is $143.43 @ [facility] #[id number]
[2023-10-12 11:30] VITALS: BP 147/88
[2023-10-12 11:47] LABS: Glucose - Point of Care 83 mg/dl (70-99)
--- NOTE | 2023-10-12 12:58 | W.PN.HOSP.TC ---
Today's Communication/Plan
-
f/u blood cultures
eliquis
final recs from neuro
Assessment / Plan
Assessment / Plan
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 She also had blurred vision 4 days ago which has resolved.
Patient also complained of mild shortness of breath with exertion.
She denies to other symptoms such as fever/chills etc.
A/P:
# R arm and leg weakness, due to acute stroke
CTH and CTA showed no acute intracranial abnormality.
MRI brain noted focal area of acute to subacute infarction involving the left anterolateral aspect of the superior ilene.
Cont ASA/Plavix total 21 days, then ASA after that unless otherwise from Neurology
LDL 47 , cont NUT GRADER Crestor
echo noted new mobile echodensity of mitral valve, EF 50%, Stage I diastolic dysfunction
SKYE: She has a mobile echodensity on her mitral annulus which is not attached to her valve leaflets; Likely piece of Calcium. after CTS/Cards discussion - treat conservatively. Eliquis 5mg BID x 3 months with repeat TTE outpatient.
-if any new strokes - Stat coming back to the hospital
#Mobile echodensity on her mitral annulus
-see plan above, likely calcium deposit
-Eliquis x 3 months at least, statin
-TTE in 3 months
-Cards rec dcing ASA/Plavix
-F/u finalized cultures - to ensure no bacteremia
A1C 6.2%
PT OT cleared for HH
# Type 2 diabetes mellitus
Carb control diet
A1C 6.2%
Cont metformin
cover with ISS
# Obesity due to excess calories
BMI 34
# Hyperlipidemia
cont NUT GRADER Crestor
# Hypothyroidism (h/o Thyroid cancer s/p total thyroidectomy)
Cont NUT GRADER Synthroid
# Crohn's disease
# Depression/ Anxiety
mood stable
DVT ppx: Eliquis
FC
Anticipated Discharge: Within 24 hours
Subjective/Interval History
-
Date of Service: October 12, 2023
no acute events
Objective Data
-
Labs:
Laboratory Results
10/12/23
07:29
WBC 5.0
Hgb 13.6
Hct 39.1
Plt Count 174
Sodium 137
Potassium 4.4
Chloride 105
Carbon Dioxide 23
BUN 20 H
Creatinine 0.7
Glucose 128 H
Calcium 10.0
Vital Signs:
Vital Signs
Temp Pulse Resp BP Pulse Ox
97.9 F 69 20 147/88 98
10/12/23 11:30 10/12/23 11:30 10/12/23 11:30 10/12/23 11:30 10/12/23 11:30
I&O
10/11/23 10/12/23 10/13/23
06:59 06:59 06:59
Intake Total 1080 / 1080 640 / 640
Balance 1080 / 1080 640 / 640
Review of Systems
-
History Source: Patient
All other systems: Not reviewed unless documented
Physical Exam
-
General: Well Developed, Well Nourished, No Apparent Distress, Comfortable and Conversant; Negative Respiratory Distress
HEENT: Normocephalic, Atraumatic, Nose Appears Normal and Ears Appear Normal; Negative Oxygen
Respiratory: Clear to Auscultation and Non Labored Respirations; Negative Accessory Resp Muscle Use
Cardiac: Regular Rhythm and S1/S2
GI: Soft, Nontender, Nondistended and Normal Bowel Sounds
Skin: Warm and Dry
Neuro: Awake, Alert, Oriented, AO x 3 and Other (R leg weakness)
Psych: Calm and Intact Judgement/Insight
Data Reviewed
-
CT Scan: Report Reviewed by me
MRI: Report Reviewed by me and Discussed with Patient
Medical Tests (Nuc Med, Echo etc): Report Reviewed by me and Discussed with Patient
Labs: Labs Reviewed by me
[2023-10-12 16:09] VITALS: BP 141/71
[2023-10-12 16:58] LABS: Glucose - Point of Care 101 mg/dl (70-99)
[2023-10-12] MEDS: ELIQUIS 5 MG PO (20:42)
[2023-10-12 21:32] LABS: Glucose - Point of Care 99 mg/dl (70-99)
[2023-10-12 23:05] VITALS: BP 146/81
[2023-10-13] MEDS: SYNTHROID 88 MCG PO (05:39)
[2023-10-13 07:10] LABS: Glucose - Point of Care 132 mg/dl (70-99)
[2023-10-13 07:20] VITALS: BP 164/78
[2023-10-13] MEDS: ELIQUIS 5 MG PO (08:15)
[2023-10-13] MEDS: CRESTOR 5 MG PO (08:17)
[2023-10-13 09:04] LABS: Hematocrit 42.6 % (37.0-47.0); Hemoglobin 14.3 g/dL (12.0-16.0); Mean Corp Hgb Conc. 33.6 g/dL (33.0-37.0); Mean Corpuscular Hgb 30.7 pg (27.0-31.0); Mean Corpuscular Volume 91.4 fL (81.0-99.0); Mean Platelet Volume 10.5 fL (7.4-10.4); Platelet Count 196 10^3/uL (130-400); Red Blood Cell Count 4.66 10^6/uL (4.20-5.40); Red Cell Dist. Width 13.2 % (11.5-14.5); White Blood Cell Count 6.2 10^3/uL (4.8-10.8)
[2023-10-13 09:30] LABS: Blood Urea Nitrogen 17 mg/dl (7-17); Calcium 10.1 mg/dl (8.4-10.2); Carbon Dioxide 28 mmol/L (22-30); Chloride 102 mmol/L (98-107); Estimated Creatinine Clearance 82 ml/min; Glucose 133 mg/dl (70-99); Potassium 4.1 mmol/L (3.5-5.1); Sodium 139 mmol/L (135-145); eGFR > 60.00
--- NOTE | 2023-10-13 10:42 | W.PN.HOSP.TC ---
Addendum entered and electronically signed by Bakari Elliott MD 10/13/23 13:50:
[id number]
Original Note:
Today's Communication/Plan
-
Eliquis at least 3 months, f/u TTE outpatient
No plavix or ASA
F/u PCP, Cardiology, Cardiothoracic Surgery if needed as per Cards, Neurology outpatient
Statin
Assessment / Plan
Assessment / Plan
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 She also had blurred vision 4 days ago which has resolved.
Patient also complained of mild shortness of breath with exertion.
She denies to other symptoms such as fever/chills etc.
A/P:
# R arm and leg weakness, due to acute stroke
CTH and CTA showed no acute intracranial abnormality.
MRI brain noted focal area of acute to subacute infarction involving the left anterolateral aspect of the superior ilene.
After multidisciplinary rounds with neurology, cardiothoracic surgery, cardiology�decision was made to be on Eliquis 5 mg twice daily for 3 months and then repeat echo. DC plavix, asa
LDL 47 , cont GARDE MANAGER Crestor
echo noted new mobile echodensity of mitral valve, EF 50%, Stage I diastolic dysfunction
SKYE: She has a mobile echodensity on her mitral annulus which is not attached to her valve leaflets; Likely piece of Calcium. after CTS/Cards discussion - treat conservatively. Eliquis 5mg BID x 3 months with repeat TTE outpatient.
-if any new stroke symptoms - Stat coming back to the hospital
-F/u Neurology outpatient
#Mobile echodensity on her mitral annulus
-see plan above, likely calcium deposit
-Eliquis x 3 months at least, statin
-TTE in 3 months
-Cards rec dcing ASA/Plavix
-F/u finalized cultures -NGTD - no evidence of infection at this time; remains afebrile and cultures negative
A1C 6.2%
PT OT cleared for HH
# Type 2 diabetes mellitus
Carb control diet
A1C 6.2%
Cont metformin
cover with ISS
# Obesity due to excess calories
BMI 34
# Hyperlipidemia
cont GARDE MANAGER Crestor
# Hypothyroidism (h/o Thyroid cancer s/p total thyroidectomy)
Cont GARDE MANAGER Synthroid
# Crohn's disease
# Depression/ Anxiety
mood stable
DVT ppx: Eliquis
FC
More than 30 minutes spent in discharge including
Final examination of the patient
Summarizing hospital stay
Instructions for continuing care to all relevant caregivers
Preparation of discharge records, prescriptions, and referral forms
Total time spent (35 in minutes):
Anticipated Discharge: Today
Subjective/Interval History
-
Date of Service: October 13, 2023
No acute events overnight
Objective Data
-
Labs:
Laboratory Results
10/13/23
07:24
WBC 6.2
Hgb 14.3
Hct 42.6
Plt Count 196
Sodium 139
Potassium 4.1
Chloride 102
Carbon Dioxide 28
BUN 17
Creatinine 0.7
Glucose 133 H
Calcium 10.1
Vital Signs:
Vital Signs
Temp Pulse Resp BP Pulse Ox
97.8 F 80 16 164/78 97
10/13/23 07:20 10/13/23 07:20 10/13/23 07:20 10/13/23 07:20 10/13/23 07:20
I&O
10/12/23 10/13/23 10/14/23
06:59 06:59 06:59
Intake Total 640 / 640 660 / 660
Balance 640 / 640 660 / 660
Review of Systems
-
History Source: Patient
All other systems: Not reviewed unless documented
Physical Exam
-
General: Well Developed, Well Nourished, No Apparent Distress, Comfortable and Conversant; Negative Respiratory Distress
HEENT: Normocephalic, Atraumatic, Nose Appears Normal and Ears Appear Normal; Negative Oxygen
Respiratory: Clear to Auscultation and Non Labored Respirations; Negative Accessory Resp Muscle Use
Cardiac: Regular Rhythm and S1/S2
GI: Soft, Nontender, Nondistended and Normal Bowel Sounds
Skin: Warm and Dry
Neuro: Awake, Alert, Oriented, AO x 3 and Other (R leg weakness)
Psych: Calm and Intact Judgement/Insight
--- NOTE | 2023-10-13 10:53 | W.DS.TRANS ---
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
-
Discharge Instructions:
Discharge Diagnosis/Procedures Right arm/leg weakness due to acute stroke
possible TIA/stroke (left anterolateral superior
ilene); Type 2 diabetes mellitus; Hyperlipidemia
; Mobile echodensity on her mitral annulus
Diet As tolerated,Diabetic, Carb Controlled,Low
Cholesterol,Low Fat
Activity As tolerated
Driving Restrictions Not until seen by your Dr
Instructions:
Stand-Alone Forms:
Changes to Home Medications: Yes
Discharge Medications:
DC Medications w/original date entered in [employer]
levothyroxine 88 mcg tablet 88 mcg PO DAILY Thyroid 11/08/21
metformin 500 mg tablet 500 mg PO DAILY Diabetes 11/08/21
cetirizine 10 mg tablet (Zyrtec) 10 mg PO DAILYPRN PRN allergies 11/09/21
bismuth subsalicylate 262 mg tablet (Pepto-Bismol) 524 mg PO DAILYPRN PRN stomach issues 10/08/23
ibuprofen 400 mg tablet 800 mg PO Q8HPRN PRN mild pain 10/08/23
infliximab 100 mg intravenous solution (Remicade) 100 mg IV Q7W Autoimmune Disorder 10/08/23
risedronate 150 mg tablet 150 mg PO QMONTH calcium 10/08/23
rosuvastatin 10 mg tablet 5 mg (1/2 x 10 mg) PO DAILY High Cholesterol #30 tabs 10/10/23
apixaban 5 mg tablet (Eliquis) 5 mg PO BID 30 days #60 tabs 10/13/23
Home Medication Changes
apixaban 5 mg tablet (Eliquis) 5 mg PO BID 30 days #60 tabs 10/13/23
Pending Results: No
--- NOTE | 2023-10-13 11:35 | CM ---
Patient seen beside, discussed plan for discharge. TT sent to [facility] with concern for Eliquis cost. Patient provided with Eliquis coupon and assistance program. Patient reports her daughter will provide transportation home. IMM reviewed,
signed, placed in chart. CM will continue to follow for all discharge planning needs.
Plan; home with Eliquis coupon, outpatient PT script in chart.
[2023-10-13 11:36] LABS: Glucose - Point of Care 92 mg/dl (70-99)
== END 2023-10-13 13:09 | disposition home or self-care (01) | DRG 65 ==
LOC: 4 WEST ACU 15:57
PROVIDERS: Physician Assistant; ADMITTING PHYSICIAN Internal Medicine; ATTENDING PHYSICIAN Internal Medicine; CONSULT PHYSICIAN Internal Medicine Cardiovascular Disease; CONSULT PHYSICIAN Psychiatry & Neurology Neurology; EMERGENCY PHYSICIAN Emergency Medicine; FAMILY PHYSICIAN Internal Medicine; OTHER PHYSICIAN Thoracic Surgery (Cardiothoracic Vascular Surgery)
DX: I63.9 Cerebral infarction, unspecified (principal); G81.91 Hemiplegia, unspecified affecting right dominant side; E11.9 Type 2 diabetes mellitus without complications; E78.00 Pure hypercholesterolemia, unspecified; Z79.01 Long term (current) use of anticoagulants
CPT/HCPCS: 70496; 70498; 70551; 80048; 80053; 80061; 82962; 83036; 83735; 85025; 85027; 87040; 92523; 92610; 93005; 93306; 93312; 93320; 93325; 97112; 97116; 97163; 97166; 97530; 99285; Q9967

== ENCOUNTER → 2023-12-24 09:55 | Outpatient (REF) | payer MEDICARE, OTHER, SELFPAY | LOC: WDC 09:55 | PROVIDERS: ATTENDING PHYSICIAN Surgery; FAMILY PHYSICIAN Internal Medicine | DX: N64.4 Mastodynia (principal); Z85.3 Personal history of malignant neoplasm of breast; C50.411 Malignant neoplasm of upper-outer quadrant of right female breast; N63.10 Unspecified lump in the right breast, unspecified quadrant; N63.31 Unspecified lump in axillary tail of the right breast | CPT/HCPCS: 76642; 77062; 77066 ==

== ENCOUNTER 2024-01-08 13:47 | Outpatient (RCR) | payer MEDICARE, OTHER, SELFPAY | END 2024-01-08 23:59 | disposition home or self-care (01) | LOC: ROT 13:47 | PROVIDERS: ATTENDING PHYSICIAN Nurse Practitioner Adult Health; FAMILY PHYSICIAN Internal Medicine | DX: R26.81 Unsteadiness on feet (principal); Z86.73 Personal history of transient ischemic attack (TIA), and cerebral infarction without residual deficits; Z73.6 Limitation of activities due to disability | CPT/HCPCS: 96125; 97110; 97112; 97116; 97129; 97130; 97163; 97167; 97530; 97535 ==

== ENCOUNTER → 2024-01-30 08:15 | Outpatient (REF) | payer MEDICARE, OTHER, SELFPAY | LOC: HWRCS 08:15 | PROVIDERS: ATTENDING PHYSICIAN Physician Assistant; FAMILY PHYSICIAN Internal Medicine | DX: I63.9 Cerebral infarction, unspecified (principal); I05.8 Other rheumatic mitral valve diseases | CPT/HCPCS: 93306 ==

== ENCOUNTER 2024-02-01 11:58 | Outpatient (RCR) | payer MEDICARE, OTHER, SELFPAY | END 2024-02-01 23:59 | disposition home or self-care (01) | LOC: ROT 11:58 | PROVIDERS: ATTENDING PHYSICIAN Nurse Practitioner Adult Health; FAMILY PHYSICIAN Internal Medicine | DX: I69.318 Other symptoms and signs involving cognitive functions following cerebral infarction (principal); Z73.6 Limitation of activities due to disability; I69.351 Hemiplegia and hemiparesis following cerebral infarction affecting right dominant side | CPT/HCPCS: 97110; 97112; 97129; 97130; 97530; 97535 ==

== ENCOUNTER 2024-02-05 08:26 | Outpatient (RCR) | payer MEDICARE, OTHER, SELFPAY | END 2024-02-05 23:59 | disposition home or self-care (01) | LOC: RPT 08:26 | PROVIDERS: ATTENDING PHYSICIAN Physician Assistant Medical; FAMILY PHYSICIAN Internal Medicine | DX: M76.891 Other specified enthesopathies of right lower limb, excluding foot (principal); M70.62 Trochanteric bursitis, left hip; Z73.6 Limitation of activities due to disability; R26.2 Difficulty in walking, not elsewhere classified; M62.81 Muscle weakness (generalized); Z96.641 Presence of right artificial hip joint | CPT/HCPCS: 97110; 97162 ==

== ENCOUNTER 2024-02-19 11:46 | Outpatient (RCR) | payer MEDICARE, OTHER, SELFPAY | END 2024-02-19 23:59 | disposition home or self-care (01) | LOC: ROT 11:46 | PROVIDERS: ATTENDING PHYSICIAN Nurse Practitioner Adult Health; FAMILY PHYSICIAN Internal Medicine | DX: I69.318 Other symptoms and signs involving cognitive functions following cerebral infarction (principal); Z73.6 Limitation of activities due to disability; I69.351 Hemiplegia and hemiparesis following cerebral infarction affecting right dominant side | CPT/HCPCS: 97129; 97130; 97535 ==

== ENCOUNTER 2024-02-20 13:37 | Outpatient (RCR) | payer MEDICARE, OTHER, SELFPAY | END 2024-02-20 23:59 | disposition home or self-care (01) | LOC: RPT 13:37 | PROVIDERS: ATTENDING PHYSICIAN Physician Assistant Medical; FAMILY PHYSICIAN Internal Medicine | DX: M76.891 Other specified enthesopathies of right lower limb, excluding foot (principal); M70.62 Trochanteric bursitis, left hip; Z73.6 Limitation of activities due to disability; R26.2 Difficulty in walking, not elsewhere classified; M62.81 Muscle weakness (generalized); Z96.641 Presence of right artificial hip joint | CPT/HCPCS: 97010; 97110 ==

== ENCOUNTER 2024-03-26 12:16 | Emergency (ER) | payer MEDICARE, OTHER, SELFPAY ==
[2024-03-26 12:19] VITALS: BP 146/84
[2024-03-26 13:20] VITALS: BMI 33.3
--- NOTE | 2024-03-26 13:47 | ED.GENMED ---
History of Present Illness
<ARTUR Yancey - Last Filed: 03/26/24 16:27>
General
Chief Complaint: Musculo-Skeletal Complaint
Source: patient
Exam Limitations: none
Time Seen by Provider: 03/26/24 12:34
Nursing documentation reviewed up to this point in time: agreed with
History of Present Illness
History of Present Illness:
Patient is a 68-year-old female with past history of stroke with right-sided weakness presents to the ER for evaluation. Patient reports on Sunday 5 days ago she was outside and she was standing walking and when she took a step with her left leg
which is normally her stronger leg(history of right slight weakness from stroke) she reports her legs gave out and she fell landing on her left side. Since then she complains of a burning pain in her bilateral thighs. She reports she feels weak
slightly to her legs bilaterally as well she reports that she is having difficulty getting herself up off of the toilet etc. She however has been able to walk. She does complain of pain to the left clavicle left chest left scapula and left
shoulder.
She is on Eliquis from prior stroke several months ago. She denies hitting her head at the time. She denies any headache.
Past History
<ARTUR Yancey - Last Filed: 03/26/24 16:27>
Past History
ED Past Medical History: Hypothyroidism, Psychiatric and Other (Crohn's disease)
ED Past Surgical History: Orthopedic and Other
Social History
Tobacco: Non-smoker
Alcohol: None
Drug: None
Personal:
Living: with family
Review of Systems
<ARTUR Yancey - Last Filed: 03/26/24 16:27>
Review of Systems
Allergies reviewed?: Yes
All Other Systems: ROS reviewed and negative except as documented in HPI and ROS
Constitutional: Reports no symptoms; Denies fever, fatigue or chills
Respiratory: Reports no symptoms
Cardiac: Reports no symptoms
ABD/GI: Reports no symptoms
: Reports no symptoms
Musculoskeletal: Reports other (Soreness to left chest clavicle and shoulder)
Skin: Reports no symptoms
Neurological: Reports no symptoms
Psychiatric: Reports no symptoms
Phy Exam
<ARTUR Yancey - Last Filed: 03/26/24 16:27>
General Physical Exam
General Presentation: no apparent distress
General age: appears stated age
General Skin: warm and dry
General Habitus: normal
General Mental: alert
General Hydration: appears well hydrated
Neurological Exam
Neurological Exam: alert, oriented x3, no motor deficits and no sensory deficits
[place]ana Coma Scale
Eye Opening: Spontaneous
Verbal Response: Oriented
Motor Response: Obeys Commands
GCS Total Score: 15
Musculoskeletal Exam
Musculoskeletal Exam: full ROM and other (No obvious head injury on exam no bony neck tenderness mildly tender to lower back normal inspection to chest back clavicle and shoulder however mildly tender with shoulder abduction)
Skin Exam
Skin Exam: normal color and warm/dry
Psychiatric Exam
Psychiatric Exam: normal mood/affect
<Cesar Guthrie MD - Last Filed: 03/27/24 08:22>
[place] Coma Scale
GCS Total Score: 15
Course
<ARTUR Yancey - Last Filed: 03/26/24 16:27>
Orders/Labs/Results
Orders:
Orders
03/26/24 13:48
Clavicle Complete, Left CR [CR Clavicle - Left Complete ] Urgent
Comment:
Reason For Exam: trauma
Shoulder, Left, Trauma CR [CR Shoulder, Trauma - Left] Urgent
Comment:
Reason For Exam: trauma
03/26/24 13:49
Chest [CR Chest - 2 Views ] Urgent
Comment:
Reason For Exam: trauma
03/26/24 13:56
Lumbar Spine Complete, 4 View [CR Lumbar Spine Comp Min 4 Vw*] Urgent
Comment:
Reason For Exam: pain
03/26/24 14:14
Pelvis, 1 or 2 Views CR [CR Pelvis - 1 Or 2 Views ] Urgent
Comment:
Reason For Exam: trAUMA
03/26/24 14:29
CT Cervical Spine W/o Iv Contr Urgent
Comment:
Reason For Exam: trauma
CT Head W/o Iv Contrast Urgent
Comment:
Reason For Exam: trauma
Tramadol HCl [Ultram] 50 mg PO NOW STA
03/26/24 14:30
PT Consult [Pt Eval And Treat] Urgent
Activity Level: Ambulate
Vital Signs
Initial and Last Documented VS:
Initial Vital Signs
Temp Pulse Resp BP Pulse Ox
98.4 F 103 18 146/84 93
03/26/24 12:19 03/26/24 12:19 03/26/24 12:19 03/26/24 12:19 03/26/24 12:19
Last Documented Vital Signs
Temp Pulse Resp BP Pulse Ox
98.4 F 79 18 162/88 97
03/26/24 12:19 03/26/24 15:09 03/26/24 12:19 03/26/24 15:09 03/26/24 15:09
Chemical Dependency Counselor consulted with Physician
Chemical Dependency Counselor consulted with physician?: Yes
Name of Physician Consulted: Jerri
<Cesar Guthrie MD - Last Filed: 03/27/24 08:22>
Orders/Labs/Results
Orders:
Orders
03/26/24 13:48
Clavicle Complete, Left CR [CR Clavicle - Left Complete ] Urgent
Comment:
Reason For Exam: trauma
Shoulder, Left, Trauma CR [CR Shoulder, Trauma - Left] Urgent
Comment:
Reason For Exam: trauma
03/26/24 13:49
Chest [CR Chest - 2 Views ] Urgent
Comment:
Reason For Exam: trauma
03/26/24 13:56
Lumbar Spine Complete, 4 View [CR Lumbar Spine Comp Min 4 Vw*] Urgent
Comment:
Reason For Exam: pain
03/26/24 14:14
Pelvis, 1 or 2 Views CR [CR Pelvis - 1 Or 2 Views ] Urgent
Comment:
Reason For Exam: trAUMA
03/26/24 14:29
CT Cervical Spine W/o Iv Contr Urgent
Comment:
Reason For Exam: trauma
CT Head W/o Iv Contrast Urgent
Comment:
Reason For Exam: trauma
Tramadol HCl [Ultram] 50 mg PO NOW STA
03/26/24 14:30
PT Consult [Pt Eval And Treat] Urgent
Activity Level: Ambulate
Vital Signs
Initial and Last Documented VS:
Initial Vital Signs
Temp Pulse Resp BP Pulse Ox
98.4 F 103 18 146/84 93
03/26/24 12:19 03/26/24 12:19 03/26/24 12:19 03/26/24 12:19 03/26/24 12:19
Last Documented Vital Signs
Temp Pulse Resp BP Pulse Ox
98.4 F 79 18 162/88 97
03/26/24 12:19 03/26/24 15:09 03/26/24 12:19 03/26/24 15:09 03/26/24 15:09
<ARTUR Yancey - Last Filed: 03/26/24 16:27>
MDM/Problems Addressed
MDM/Problems Addressed:
Unremarkable workup here in the ER all CAT scans and x-rays are negative for acute findings. Patient has a history of stroke and describes chronic right-sided residual weakness but normally is able to walk and on exam has no obvious weakness b/l .
She has good bilateral strength for me on my exam and no deficit.
Patient was eval by physical therapy and safe and stable for discharge home. She has been in physical therapy since previous stroke normally. She is in no acute distress and stable for discharge home with contusion instructions.
<ARTUR Yancey - Last Filed: 03/26/24 16:27>
*Radiology
Radiology exam reviewed: radiology read reviewed
*Pulse Oximetry
Patient hypoxic: no
*Critical Care Note
Total Time (30-74mins, 75-104mins- exclusive of procedures): Not Applicable
ED Attending Note
<ARTUR Yancey - Last Filed: 03/26/24 16:27>
-
Portions of this chart may have been created with voice recognition software.� Occasional wrong word or��sound alike� substitutions may have occurred due to the inherent limitations of voice recognition software.
<Cesar Guthrie MD - Last Filed: 03/27/24 08:22>
ED Attending Note
Patient seen and examined by attending physician: Yes
ED Attending Note:
Patient status post fall 5 days ago, presents to ED secondary to persistent left shoulder and right lower back, along with difficulty getting up from sitting position, due to 'weakness'. However, once she stands up, she is able to ambulate with
minimal difficulty. Denies fever or chills. Denies urinary or bowel incontinence. Denies loss of sensation or weakness of legs. Patient also reports left-sided head and neck pain from the fall. At the time of evaluation ED, when lying on
stretcher, patient with minimal discomfort. 5 days ago, patient states that she was walking up the steps into a house, when her right lower leg which has been weak from previous CVA, gave out, causing her to fall forward and to her left side.
Physical Exam
General: mild painful distress, not acutely ill. afebrile
Head: nc/at. eomi
Neck: supple. normal range of motion.
Heart: s1/s2 regular rate and rhythm, no murmur. equal radial pulses.
Lungs: no acute respiratory distress. clear bilaterally. chest wall nontender to palpation.
Abdomen: normal bowel sounds. not tender.
Back: mild lower back tenderness to palpation, at level of L2-4, R>L. positive right straight leg raise at approx 45 degrees.
Neuro: alert and oriented x 3. RLE motor (4/5, chronic). no sensory deficit. normal gait. normal speech
Skin: no rash
Psychiatric: well kept. interactive and cooperative
Extremities: no edema. no calf tenderness.
Multiple imaging studies: no acute findings.
Pt evaluated in ED by physical therapy, who noted that pt is able to lift herself up from stretcher without assistance and ambulate at baseline without assistance. Further recommendations provided to patient/family by PT. Pt will continue outpatient
physical therapy. Pt expresses understanding at time of discharge.
Discharge Plan
Departure
Patient Disposition: Home (Routine Discharge)
Date of Disposition: 03/26/24
Time of Disposition: 16:19
Patient with high blood pressure during this ER visit?: Yes
Condition: Fair
Covid-19: Not Applicable
Discharge Problem:
contusions
Instructions: Contusion (DC), BLOOD PRESSURE
Prescriptions:
No Action
metformin 500 mg Tablet
500 mg PO DAILY
levothyroxine 88 mcg Tablet
88 mcg PO DAILY
cetirizine [Zyrtec] 10 mg Tablet
10 mg PO DAILYPRN PRN (Reason: allergies)
infliximab [Remicade] 100 mg Recon Soln
100 mg IV Q7W
ibuprofen 400 mg Tablet
800 mg PO Q8HPRN PRN (Reason: mild pain)
Pepto-Bismol 262 mg Tablet
524 mg PO DAILYPRN PRN (Reason: stomach issues)
risedronate 150 mg Tablet
150 mg PO QMONTH
rosuvastatin 10 mg Tablet
5 mg PO DAILY Qty: 30 0RF
Eliquis 5 mg Tablet
5 mg PO BID 30 Days Qty: 60 0RF
Referrals:
Nisha Baker MD [Family Provider] -
Activity Restrictions/Additional Instructions:
You may take Tylenol for soreness as needed. Follow-up with your family doctor the next several days for reevaluation of your symptoms and continue physical therapy. Return if any worsening of symptoms.
Interventions
Interventions:
*Risk Screen - Suicide Last Done: 03/26/24 12:23
*General Assessment Last Done: 03/26/24 12:23
*Neglect/Abuse Screening Last Done: 03/26/24 12:23
ED- Fall Risk Assessment Last Done: 03/26/24 16:31
*ED COVID-19 Vaccine History Last Done: 03/26/24 13:20
*Nursing Disposition Last Done: 03/26/24 16:31
ED-Musculoskeletal Assessment Last Done: 03/26/24 15:12
Discharge Date and Time
Discharge Date/Time: 03/26/24 16:32
Print Language: PRYDEINIG
[2024-03-26] MEDS: ULTRAM 50 MG PO (15:07)
[2024-03-26 15:09] VITALS: BP 162/88
== END 2024-03-26 16:32 | disposition home or self-care (01) ==
LOC: EMR 12:16
PROVIDERS: EMERGENCY PHYSICIAN Emergency Medicine; FAMILY PHYSICIAN Internal Medicine
DX: S30.0XXA Contusion of lower back and pelvis, initial encounter (principal); W19.XXXA Unspecified fall, initial encounter; I69.351 Hemiplegia and hemiparesis following cerebral infarction affecting right dominant side; Z79.01 Long term (current) use of anticoagulants; Z96.641 Presence of right artificial hip joint
CPT/HCPCS: 99285; 70450; 71046; 72110; 72125; 72170; 73000; 73030

== ENCOUNTER 2024-04-17 10:00 | Outpatient (RCR) | payer MEDICARE, OTHER, SELFPAY | END 2024-04-17 23:59 | disposition home or self-care (01) | LOC: RPT 10:00 | PROVIDERS: ATTENDING PHYSICIAN Physician Assistant Medical; FAMILY PHYSICIAN Internal Medicine | DX: M76.891 Other specified enthesopathies of right lower limb, excluding foot (principal); M70.62 Trochanteric bursitis, left hip; Z73.6 Limitation of activities due to disability; R26.2 Difficulty in walking, not elsewhere classified; M62.81 Muscle weakness (generalized); Z96.641 Presence of right artificial hip joint | CPT/HCPCS: 97010; 97110 ==

== ENCOUNTER → 2024-04-29 13:50 | Outpatient (REF) | payer MEDICARE, OTHER, SELFPAY | LOC: MRI 3T 13:50 | PROVIDERS: ATTENDING PHYSICIAN Internal Medicine | DX: M62.81 Muscle weakness (generalized) (principal); Z91.81 History of falling; M47.816 Spondylosis without myelopathy or radiculopathy, lumbar region; I69.30 Unspecified sequelae of cerebral infarction | CPT/HCPCS: 72148 ==

== ENCOUNTER 2024-05-16 08:10 | Outpatient (RCR) | payer MEDICARE, OTHER, SELFPAY | END 2024-05-16 23:59 | disposition home or self-care (01) | LOC: RPT 08:10 | PROVIDERS: ATTENDING PHYSICIAN Physician Assistant Medical; FAMILY PHYSICIAN Internal Medicine | DX: M76.891 Other specified enthesopathies of right lower limb, excluding foot (principal); M70.62 Trochanteric bursitis, left hip; Z73.6 Limitation of activities due to disability; R26.2 Difficulty in walking, not elsewhere classified; M62.81 Muscle weakness (generalized); Z91.81 History of falling; Z96.641 Presence of right artificial hip joint | CPT/HCPCS: 72148; 97010; 97110; 97530 ==

== ENCOUNTER → 2024-06-09 09:06 | Outpatient (REF) | payer MEDICARE, OTHER, SELFPAY | LOC: HWRCS 09:06 | PROVIDERS: ATTENDING PHYSICIAN Internal Medicine Cardiovascular Disease; FAMILY PHYSICIAN Internal Medicine | DX: I05.8 Other rheumatic mitral valve diseases (principal) | CPT/HCPCS: 93306 ==

== ENCOUNTER → 2024-10-01 09:48 | Outpatient (REF) | payer MEDICARE, OTHER, SELFPAY | LOC: HWRAD 09:48 | PROVIDERS: ATTENDING PHYSICIAN Internal Medicine | DX: M81.0 Age-related osteoporosis without current pathological fracture (principal) | CPT/HCPCS: 77080 ==

== ENCOUNTER → 2024-12-24 09:24 | Outpatient (REF) | payer MEDICARE, OTHER, SELFPAY | LOC: HWWDC 09:24 | PROVIDERS: ATTENDING PHYSICIAN Internal Medicine; REFERRING PHYSICIAN Surgery | DX: Z12.31 Encounter for screening mammogram for malignant neoplasm of breast (principal) | CPT/HCPCS: 77063; 77067 ==

== ENCOUNTER → 2025-02-03 11:21 | Outpatient (REF) | payer MEDICARE, OTHER, SELFPAY | LOC: HWRAD 11:21 | PROVIDERS: ATTENDING PHYSICIAN Internal Medicine | DX: R06.02 Shortness of breath (principal); R63.4 Abnormal weight loss; Z87.891 Personal history of nicotine dependence | CPT/HCPCS: 71046 ==